=== PATIENT | female | born 1940 | race Caucasian/White ===

== ENCOUNTER 2019-09-23 14:59 | Outpatient (CLI) | payer MEDICARE, OTHER ==
[2019-09-23 17:07] LABS: Bilirubin Negative (Negative); Blood, Urine Negative (Negative); Clarity Clear (Clear); Glucose, Urine (Dipstick) Negative (Negative); Ketone, Urine Negative (Negative); Leukocyte Negative (Negative); Nitrite Negative (Negative); Protein, Urine (Dipstick) Negative (Neg-Trace); Urobilinogen 0.2 mg/dL (Less than 2)
[2019-09-23 17:17] LABS: Specific Gravity, Urine Less/Equal 1.005 (1.005-1.030)
[2019-09-23 17:27] LABS: Bacteria/HPF None Seen HPF (None Seen); RBC/HPF None Seen HPF (0-3); Squamous Epithelial 0-3 HPF (0-3); WBC/HPF None Seen HPF (0-3)
== END 2019-09-23 15:00 | disposition home or self-care (01) ==
LOC: NAV LABSP 14:59
PROVIDERS: ATTEND Family Medicine
DX: N39.0 Urinary tract infection, site not specified (principal)
CPT/HCPCS: 81001; 87086

== ENCOUNTER 2020-06-15 20:04 | Inpatient (IN) | payer MEDICARE ==
[2020-06-15] MEDS ORDERED: Dextrose 50% Abboject 50 ML SYRINGE IVP PRN (22:00)
[2020-06-15] MEDS ORDERED: Dextrose 5% in Water 1,000 ML IV PRN (22:00)
[2020-06-15] MEDS ORDERED: HumaLOG 300 UNITS/3 ML VIAL SC PRN ×2 (22:00)
[2020-06-15] MEDS ORDERED: Loratadine 10 MG TAB PO PRN (22:06)
[2020-06-15] MEDS ORDERED: Ibuprofen 400 MG TAB PO PRN (22:09)
[2020-06-15] MEDS ORDERED: Timolol 0.5% Ophth Soln 5 ml Bottle EA EYE SCH (22:15)
[2020-06-15] MEDS: Acetaminophen 500 MG TAB PO SCH (23:38)
[2020-06-16] MEDS: Acetaminophen 500 MG TAB PO SCH ×4 (05:24→23:42)
[2020-06-16 05:45] LABS: Anion Gap 14 mmol/L (10-20); BUN (Urea Nitrogen) 21 mg/dL (9.8-20.1); Calc. Creatinine Clearance 70 mL/min (70-130); Calcium 9.1 mg/dL (7.8-10.44); Carbon Dioxide 23 mmol/L (23-31); Chloride 104 mmol/L (98-107); Glucose 111 mg/dL (83-110); Potassium 4.6 mmol/L (3.5-5.1); Sodium 136 mmol/L (136-145)
[2020-06-16 05:47] LABS: #Basophils 0.1 thou/uL (0.0-0.2); #Eosinphils 0.3 thou/uL (0.0-0.7); #Lymphocytes 1.8 thou/uL (1.20-3.40); #Monocytes 0.5 thou/uL (0.11-0.59); #Neutrophils 4.7 thou/uL (1.40-6.50); %Basophils 1.1 % (0.0-1.0); %Eosinophils 4.3 % (0.0-10.0); %Monocytes 7.1 % (0.0-10.0); %Neutrophils 63.4 % (42.0-75.0); Hemoglobin 12.5 g/dL (12.0-16.0); Hypochromia SLIGHT = 6-15 cells (100X) (0-5/hpf); MDiff Complete? YES; Mean Corpuscular HGB CONC 29.6 g/dL (32.0-36.0); Mean Corpuscular Volume 94.6 fL (78.0-98.0); Mean Platelet Volume 8.2 fL (7.4-10.4); Platelet Count 163 thou/uL (130-400); Platelet Morphology Comment Appears Adequate; RBC Distribution Width 13.1 % (11.5-14.5); Red Blood Cell (RBC) Count 4.47 mill/uL (4.20-5.40); White Blood Cell (WBC) Count 7.4 thou/uL (4.8-10.8)
[2020-06-16] MEDS: diphenhydrAMINE 25 MG CAP PO PRN (06:30)
[2020-06-16] MEDS: Hydrochlorothiazide 25 MG TAB PO SCH (08:07)
[2020-06-16] MEDS: Cholecalciferol 1,000 UNITS (25 MCG) TAB PO SCH (08:08)
[2020-06-16] MEDS: ALPRAZolam 0.25 MG TAB PO SCH ×2 (08:08→21:04)
[2020-06-16] MEDS: Aspirin 81 mg Enteric Coated Tablet PO SCH ×2 (08:08→21:04)
[2020-06-16] MEDS: Glimepiride 2 MG TAB PO SCH (08:08)
[2020-06-16] MEDS: Fish Oil 1,000 MG CAP PO SCH (08:09)
[2020-06-16] MEDS: Mometasone/Formoterol 200/5 60 PUFF INH SCH ×2 (08:09→21:04)
[2020-06-16] MEDS: Timolol 0.5% Ophth Soln 5 ml Bottle EA EYE SCH ×2 (08:10→21:08)
[2020-06-16] MEDS: DIFLUPREDNATE EA EYE SCH (08:14)
[2020-06-16] MEDS: [UNRECOGNIZED DRUG - OTHER] PO SCH ×2 (08:14→21:08)
[2020-06-16] MEDS: TACROLIMUS TOP SCH (08:15)
[2020-06-17] MEDS: Acetaminophen 500 MG TAB PO SCH ×3 (05:50→17:33)
[2020-06-17] MEDS: Timolol 0.5% Ophth Soln 5 ml Bottle EA EYE SCH ×2 (08:12→20:49)
[2020-06-17] MEDS: Mometasone/Formoterol 200/5 60 PUFF INH SCH ×2 (08:13→20:45)
[2020-06-17] MEDS: Cholecalciferol 1,000 UNITS (25 MCG) TAB PO SCH (08:15)
[2020-06-17] MEDS: Aspirin 81 mg Enteric Coated Tablet PO SCH ×2 (08:16→20:46)
[2020-06-17] MEDS: Fish Oil 1,000 MG CAP PO SCH (08:16)
[2020-06-17] MEDS: ALPRAZolam 0.25 MG TAB PO SCH ×2 (08:16→20:44)
[2020-06-17] MEDS: Glimepiride 2 MG TAB PO SCH (08:17)
[2020-06-17] MEDS: [UNRECOGNIZED DRUG - OTHER] PO SCH ×2 (08:18→20:46)
[2020-06-17] MEDS: DIFLUPREDNATE EA EYE SCH (08:18)
[2020-06-17] MEDS: TACROLIMUS TOP SCH (08:19)
[2020-06-17] MEDS: Hydrochlorothiazide 25 MG TAB PO SCH (08:26)
[2020-06-17] MEDS: diphenhydrAMINE 25 MG CAP PO PRN (13:03)
[2020-06-18] MEDS: Acetaminophen 500 MG TAB PO SCH ×4 (00:14→17:08)
[2020-06-18] MEDS: Fish Oil 1,000 MG CAP PO SCH (08:58)
[2020-06-18] MEDS: Hydrochlorothiazide 25 MG TAB PO SCH (08:58)
[2020-06-18] MEDS: Aspirin 81 mg Enteric Coated Tablet PO SCH ×2 (08:58→20:41)
[2020-06-18] MEDS: Glimepiride 2 MG TAB PO SCH (08:58)
[2020-06-18] MEDS: Cholecalciferol 1,000 UNITS (25 MCG) TAB PO SCH (08:58)
[2020-06-18] MEDS: ALPRAZolam 0.25 MG TAB PO SCH ×2 (08:59→20:41)
[2020-06-18] MEDS: Mometasone/Formoterol 200/5 60 PUFF INH SCH ×2 (08:59→20:41)
[2020-06-18] MEDS: [UNRECOGNIZED DRUG - OTHER] PO SCH ×2 (09:00→20:41)
[2020-06-18] MEDS: DIFLUPREDNATE EA EYE SCH (09:00)
[2020-06-18] MEDS: Timolol 0.5% Ophth Soln 5 ml Bottle EA EYE SCH ×2 (09:01→20:40)
[2020-06-18] MEDS: TACROLIMUS TOP SCH (09:01)
[2020-06-18] MEDS: diphenhydrAMINE 25 MG CAP PO PRN (17:09)
[2020-06-19] MEDS: Acetaminophen 500 MG TAB PO SCH ×4 (01:25→17:29)
[2020-06-19] MEDS: Glimepiride 2 MG TAB PO SCH (07:53)
[2020-06-19] MEDS: ALPRAZolam 0.25 MG TAB PO SCH ×2 (07:54→20:53)
[2020-06-19] MEDS: Hydrochlorothiazide 25 MG TAB PO SCH (08:23)
[2020-06-19] MEDS: Fish Oil 1,000 MG CAP PO SCH (08:24)
[2020-06-19] MEDS: Mometasone/Formoterol 200/5 60 PUFF INH SCH ×2 (08:25→20:52)
[2020-06-19] MEDS: Timolol 0.5% Ophth Soln 5 ml Bottle EA EYE SCH ×2 (08:26→20:53)
[2020-06-19] MEDS: TACROLIMUS TOP SCH (08:27)
[2020-06-19] MEDS: DIFLUPREDNATE EA EYE SCH (08:28)
[2020-06-19] MEDS: [UNRECOGNIZED DRUG - OTHER] PO SCH ×2 (08:28→20:51)
[2020-06-19] MEDS: Cholecalciferol 1,000 UNITS (25 MCG) TAB PO SCH (08:29)
[2020-06-19] MEDS: Aspirin 81 mg Enteric Coated Tablet PO SCH ×2 (08:30→20:53)
[2020-06-19] MEDS ORDERED: ALPRAZolam 0.25 MG TAB PO PRN (13:12)
[2020-06-19] MEDS ORDERED: Lubiprostone 24 MCG CAP PO SCH (16:30)
[2020-06-20] MEDS: Acetaminophen 500 MG TAB PO SCH ×5 (00:16→23:57)
[2020-06-20 05:37] LABS: #Basophils 0.1 thou/uL (0.0-0.2); #Eosinphils 0.2 thou/uL (0.0-0.7); #Lymphocytes 2.2 thou/uL (1.20-3.40); #Monocytes 0.6 thou/uL (0.11-0.59); #Neutrophils 6.8 thou/uL (1.40-6.50); %Basophils 0.9 % (0.0-1.0); %Eosinophils 1.6 % (0.0-10.0); %Lymphocytes 22.1 % (21.0-51.0); %Monocytes 6.4 % (0.0-10.0); %Neutrophils 69.1 % (42.0-75.0); Hemoglobin 12.3 g/dL (12.0-16.0); Mean Corpuscular HGB CONC 29.5 g/dL (32.0-36.0); Mean Corpuscular Hemoglobin 27.8 pg (27.0-31.0); Mean Corpuscular Volume 94.3 fL (78.0-98.0); Mean Platelet Volume 7.6 fL (7.4-10.4); Platelet Count 282 thou/uL (130-400); Red Blood Cell (RBC) Count 4.42 mill/uL (4.20-5.40); White Blood Cell (WBC) Count 9.8 thou/uL (4.8-10.8)
[2020-06-20 05:49] LABS: Anion Gap 14 mmol/L (10-20); BUN (Urea Nitrogen) 43 mg/dL (9.8-20.1); Calc. Creatinine Clearance 56 mL/min (70-130); Calcium 8.8 mg/dL (7.8-10.44); Carbon Dioxide 23 mmol/L (23-31); Chloride 100 mmol/L (98-107); Glucose 135 mg/dL (83-110); Potassium 3.8 mmol/L (3.5-5.1); Sodium 133 mmol/L (136-145)
[2020-06-20] MEDS: Fish Oil 1,000 MG CAP PO SCH (08:05)
[2020-06-20] MEDS: Glimepiride 2 MG TAB PO SCH (08:11)
[2020-06-20] MEDS: Aspirin 81 mg Enteric Coated Tablet PO SCH ×3 (08:11→21:15)
[2020-06-20] MEDS: Cholecalciferol 1,000 UNITS (25 MCG) TAB PO SCH (08:12)
[2020-06-20] MEDS: Hydrochlorothiazide 25 MG TAB PO SCH (08:13)
[2020-06-20] MEDS: Timolol 0.5% Ophth Soln 5 ml Bottle EA EYE SCH ×3 (08:13→21:14)
[2020-06-20] MEDS: TACROLIMUS TOP SCH (08:14)
[2020-06-20] MEDS: Mometasone/Formoterol 200/5 60 PUFF INH SCH ×3 (08:15→21:14)
[2020-06-20] MEDS: DIFLUPREDNATE EA EYE SCH (08:15)
[2020-06-20] MEDS: [UNRECOGNIZED DRUG - OTHER] PO SCH ×3 (08:18→21:14)
[2020-06-20] MEDS: ALPRAZolam 0.25 MG TAB PO SCH ×2 (20:42→21:13)
[2020-06-21] MEDS: Acetaminophen 500 MG TAB PO SCH ×4 (05:24→23:27)
[2020-06-21] MEDS: DIFLUPREDNATE EA EYE SCH (07:53)
[2020-06-21] MEDS: Timolol 0.5% Ophth Soln 5 ml Bottle EA EYE SCH ×2 (07:53→20:37)
[2020-06-21] MEDS: Cholecalciferol 1,000 UNITS (25 MCG) TAB PO SCH (07:54)
[2020-06-21] MEDS: Hydrochlorothiazide 25 MG TAB PO SCH (07:55)
[2020-06-21] MEDS: Fish Oil 1,000 MG CAP PO SCH (07:55)
[2020-06-21] MEDS: Glimepiride 2 MG TAB PO SCH (07:55)
[2020-06-21] MEDS: Mometasone/Formoterol 200/5 60 PUFF INH SCH ×2 (07:55→20:37)
[2020-06-21] MEDS: Aspirin 81 mg Enteric Coated Tablet PO SCH ×2 (07:55→20:37)
[2020-06-21] MEDS: [UNRECOGNIZED DRUG - OTHER] PO SCH ×2 (07:56→20:36)
[2020-06-21] MEDS: TACROLIMUS TOP SCH (07:59)
[2020-06-21] MEDS: ALPRAZolam 0.25 MG TAB PO SCH (20:37)
[2020-06-22] MEDS: Acetaminophen 500 MG TAB PO SCH ×3 (04:59→18:16)
[2020-06-22] MEDS: Glimepiride 2 MG TAB PO SCH (08:24)
[2020-06-22] MEDS: Cholecalciferol 1,000 UNITS (25 MCG) TAB PO SCH (08:24)
[2020-06-22] MEDS: Fish Oil 1,000 MG CAP PO SCH (08:25)
[2020-06-22] MEDS: Hydrochlorothiazide 25 MG TAB PO SCH (08:25)
[2020-06-22] MEDS: Aspirin 81 mg Enteric Coated Tablet PO SCH ×2 (08:26→20:35)
[2020-06-22] MEDS: [UNRECOGNIZED DRUG - OTHER] PO SCH ×2 (08:26→20:36)
[2020-06-22] MEDS: Mometasone/Formoterol 200/5 60 PUFF INH SCH ×2 (08:26→20:33)
[2020-06-22] MEDS: DIFLUPREDNATE EA EYE SCH (08:26)
[2020-06-22] MEDS: Timolol 0.5% Ophth Soln 5 ml Bottle EA EYE SCH ×2 (08:27→20:35)
[2020-06-22] MEDS: TACROLIMUS TOP SCH (08:27)
[2020-06-22] MEDS: ALPRAZolam 0.25 MG TAB PO SCH (20:35)
[2020-06-23] MEDS: Acetaminophen 500 MG TAB PO SCH ×4 (01:16→18:48)
[2020-06-23] MEDS: Mometasone/Formoterol 200/5 60 PUFF INH SCH ×2 (09:05→20:56)
[2020-06-23] MEDS: [UNRECOGNIZED DRUG - OTHER] PO SCH ×2 (09:05→20:54)
[2020-06-23] MEDS: DIFLUPREDNATE EA EYE SCH (09:07)
[2020-06-23] MEDS: Cholecalciferol 1,000 UNITS (25 MCG) TAB PO SCH (09:08)
[2020-06-23] MEDS: Timolol 0.5% Ophth Soln 5 ml Bottle EA EYE SCH ×2 (09:08→20:55)
[2020-06-23] MEDS: Glimepiride 2 MG TAB PO SCH (09:09)
[2020-06-23] MEDS: Aspirin 81 mg Enteric Coated Tablet PO SCH ×2 (09:09→20:54)
[2020-06-23] MEDS: Fish Oil 1,000 MG CAP PO SCH (09:09)
[2020-06-23] MEDS: Hydrochlorothiazide 25 MG TAB PO SCH (09:09)
[2020-06-23] MEDS: TACROLIMUS TOP SCH (09:11)
[2020-06-23] MEDS: ALPRAZolam 0.25 MG TAB PO SCH (20:54)
[2020-06-24] MEDS: Acetaminophen 500 MG TAB PO SCH ×4 (02:36→17:55)
[2020-06-24] MEDS: Aspirin 81 mg Enteric Coated Tablet PO SCH ×2 (08:00→21:17)
[2020-06-24] MEDS: Cholecalciferol 1,000 UNITS (25 MCG) TAB PO SCH (08:00)
[2020-06-24] MEDS: Glimepiride 2 MG TAB PO SCH (08:00)
[2020-06-24] MEDS: Hydrochlorothiazide 25 MG TAB PO SCH (08:01)
[2020-06-24] MEDS: Fish Oil 1,000 MG CAP PO SCH (08:01)
[2020-06-24] MEDS: Mometasone/Formoterol 200/5 60 PUFF INH SCH ×2 (08:01→21:18)
[2020-06-24] MEDS: [UNRECOGNIZED DRUG - OTHER] PO SCH ×2 (08:03→21:17)
[2020-06-24] MEDS: DIFLUPREDNATE EA EYE SCH ×2 (08:04→08:16)
[2020-06-24] MEDS: TACROLIMUS TOP SCH (08:04)
[2020-06-24] MEDS: Timolol 0.5% Ophth Soln 5 ml Bottle EA EYE SCH ×2 (08:04→21:17)
[2020-06-24] MEDS: ALPRAZolam 0.25 MG TAB PO SCH (21:17)
[2020-06-25] MEDS: Acetaminophen 500 MG TAB PO SCH ×5 (00:19→23:19)
[2020-06-25] MEDS: Aspirin 81 mg Enteric Coated Tablet PO SCH ×2 (08:01→20:49)
[2020-06-25] MEDS: Glimepiride 2 MG TAB PO SCH (08:01)
[2020-06-25] MEDS: Fish Oil 1,000 MG CAP PO SCH (08:01)
[2020-06-25] MEDS: Cholecalciferol 1,000 UNITS (25 MCG) TAB PO SCH (08:01)
[2020-06-25] MEDS: Hydrochlorothiazide 25 MG TAB PO SCH (08:02)
[2020-06-25] MEDS: Mometasone/Formoterol 200/5 60 PUFF INH SCH ×2 (08:02→20:49)
[2020-06-25] MEDS: [UNRECOGNIZED DRUG - OTHER] PO SCH ×2 (08:03→20:47)
[2020-06-25] MEDS: DIFLUPREDNATE EA EYE SCH (08:03)
[2020-06-25] MEDS: Timolol 0.5% Ophth Soln 5 ml Bottle EA EYE SCH ×2 (08:04→20:47)
[2020-06-25] MEDS: TACROLIMUS TOP SCH (08:04)
[2020-06-25] MEDS: Lubiprostone 24 MCG CAP PO PRN (10:33)
[2020-06-25] MEDS: ALPRAZolam 0.25 MG TAB PO SCH (20:49)
[2020-06-26] MEDS: Acetaminophen 500 MG TAB PO SCH ×4 (05:56→23:39)
[2020-06-26] MEDS: Cholecalciferol 1,000 UNITS (25 MCG) TAB PO SCH (08:12)
[2020-06-26] MEDS: Hydrochlorothiazide 25 MG TAB PO SCH (08:12)
[2020-06-26] MEDS: Glimepiride 2 MG TAB PO SCH (08:12)
[2020-06-26] MEDS: Fish Oil 1,000 MG CAP PO SCH (08:12)
[2020-06-26] MEDS: Aspirin 81 mg Enteric Coated Tablet PO SCH ×2 (08:13→20:48)
[2020-06-26] MEDS: Mometasone/Formoterol 200/5 60 PUFF INH SCH ×2 (08:13→20:48)
[2020-06-26] MEDS: [UNRECOGNIZED DRUG - OTHER] PO SCH ×2 (08:14→20:48)
[2020-06-26] MEDS: Timolol 0.5% Ophth Soln 5 ml Bottle EA EYE SCH ×2 (08:14→20:49)
[2020-06-26] MEDS: DIFLUPREDNATE EA EYE SCH (08:15)
[2020-06-26] MEDS: TACROLIMUS TOP SCH (08:15)
[2020-06-26] MEDS: ALPRAZolam 0.25 MG TAB PO SCH (20:48)
[2020-06-27] MEDS: Acetaminophen 500 MG TAB PO SCH ×2 (06:05→12:01)
[2020-06-27] MEDS: Timolol 0.5% Ophth Soln 5 ml Bottle EA EYE SCH ×2 (08:08→20:41)
[2020-06-27] MEDS: Aspirin 81 mg Enteric Coated Tablet PO SCH ×2 (08:09→20:40)
[2020-06-27] MEDS: Glimepiride 2 MG TAB PO SCH (08:10)
[2020-06-27] MEDS: Hydrochlorothiazide 25 MG TAB PO SCH (08:10)
[2020-06-27] MEDS: Fish Oil 1,000 MG CAP PO SCH (08:10)
[2020-06-27] MEDS: Cholecalciferol 1,000 UNITS (25 MCG) TAB PO SCH (08:10)
[2020-06-27] MEDS: DIFLUPREDNATE EA EYE SCH (08:11)
[2020-06-27] MEDS: Mometasone/Formoterol 200/5 60 PUFF INH SCH ×2 (08:11→20:40)
[2020-06-27] MEDS: [UNRECOGNIZED DRUG - OTHER] PO SCH ×2 (08:11→20:40)
[2020-06-27] MEDS: TACROLIMUS TOP SCH (08:12)
[2020-06-27 09:56] VITALS: BMI 39.0
[2020-06-27] MEDS: Lubiprostone 24 MCG CAP PO PRN (12:07)
[2020-06-27] MEDS ORDERED: Ondansetron ODT 4 MG TAB ONE (13:49)
[2020-06-27] MEDS ORDERED: Ondansetron ODT 4 MG TAB PO PRN (15:55)
[2020-06-27] MEDS: ALPRAZolam 0.25 MG TAB PO SCH (20:40)
[2020-06-27] MEDS: Ibuprofen 200 MG TAB PO PRN (21:45)
[2020-06-28] MEDS: Acetaminophen 500 MG TAB PO SCH ×5 (00:18→17:31)
[2020-06-28] MEDS: Cholecalciferol 1,000 UNITS (25 MCG) TAB PO SCH (08:23)
[2020-06-28] MEDS: Aspirin 81 mg Enteric Coated Tablet PO SCH ×2 (08:23→20:57)
[2020-06-28] MEDS: Fish Oil 1,000 MG CAP PO SCH (08:23)
[2020-06-28] MEDS: Glimepiride 2 MG TAB PO SCH (08:23)
[2020-06-28] MEDS: Timolol 0.5% Ophth Soln 5 ml Bottle EA EYE SCH ×2 (08:25→20:57)
[2020-06-28] MEDS: DIFLUPREDNATE EA EYE SCH (08:25)
[2020-06-28] MEDS: TACROLIMUS TOP SCH (08:26)
[2020-06-28] MEDS: Hydrochlorothiazide 25 MG TAB PO SCH (08:26)
[2020-06-28] MEDS: Mometasone/Formoterol 200/5 60 PUFF INH SCH ×2 (08:29→20:58)
[2020-06-28] MEDS: [UNRECOGNIZED DRUG - OTHER] PO SCH ×2 (08:29→20:58)
[2020-06-28] MEDS: Lubiprostone 24 MCG CAP PO PRN (09:02)
[2020-06-28] MEDS: Polyethylene Glycol 3350 17 GM Packet PO PRN (12:37)
[2020-06-28] MEDS: ALPRAZolam 0.25 MG TAB PO SCH (20:57)
[2020-06-29] MEDS: Acetaminophen 500 MG TAB PO SCH ×5 (00:19→23:59)
[2020-06-29] MEDS: Polyethylene Glycol 3350 17 GM Packet PO PRN (07:49)
[2020-06-29] MEDS: Lubiprostone 24 MCG CAP PO PRN (07:49)
[2020-06-29] MEDS: [UNRECOGNIZED DRUG - OTHER] PO SCH ×2 (07:49→21:11)
[2020-06-29] MEDS: Glimepiride 2 MG TAB PO SCH (07:50)
[2020-06-29] MEDS: Cholecalciferol 1,000 UNITS (25 MCG) TAB PO SCH (07:50)
[2020-06-29] MEDS: Fish Oil 1,000 MG CAP PO SCH (07:50)
[2020-06-29] MEDS: Mometasone/Formoterol 200/5 60 PUFF INH SCH ×2 (07:51→21:04)
[2020-06-29] MEDS: TACROLIMUS TOP SCH (07:52)
[2020-06-29] MEDS: Timolol 0.5% Ophth Soln 5 ml Bottle EA EYE SCH ×2 (07:52→21:03)
[2020-06-29] MEDS: DIFLUPREDNATE EA EYE SCH (07:52)
[2020-06-29] MEDS: Aspirin 81 mg Enteric Coated Tablet PO SCH ×2 (07:57→21:03)
[2020-06-29] MEDS ORDERED: Bisacodyl 10 MG SUPP PR PRN (16:03)
[2020-06-29] MEDS: Ibuprofen 200 MG TAB PO PRN (16:29)
[2020-06-29] MEDS: ALPRAZolam 0.25 MG TAB PO SCH (21:03)
[2020-06-30] MEDS: Acetaminophen 500 MG TAB PO SCH ×3 (05:07→18:23)
[2020-06-30] MEDS: Timolol 0.5% Ophth Soln 5 ml Bottle EA EYE SCH ×2 (08:11→20:50)
[2020-06-30] MEDS: Aspirin 81 mg Enteric Coated Tablet PO SCH ×2 (08:12→20:50)
[2020-06-30] MEDS: Glimepiride 2 MG TAB PO SCH (08:13)
[2020-06-30] MEDS: Lubiprostone 24 MCG CAP PO PRN (08:13)
[2020-06-30] MEDS: Fish Oil 1,000 MG CAP PO SCH (08:13)
[2020-06-30] MEDS: Cholecalciferol 1,000 UNITS (25 MCG) TAB PO SCH (08:13)
[2020-06-30] MEDS: DIFLUPREDNATE EA EYE SCH (08:14)
[2020-06-30] MEDS: [UNRECOGNIZED DRUG - OTHER] PO SCH ×2 (08:15→20:50)
[2020-06-30] MEDS: Mometasone/Formoterol 200/5 60 PUFF INH SCH ×2 (08:15→20:51)
[2020-06-30] MEDS: TACROLIMUS TOP SCH (08:15)
[2020-06-30] MEDS: ALPRAZolam 0.25 MG TAB PO SCH (20:52)
[2020-07-01] MEDS: Acetaminophen 500 MG TAB PO SCH ×2 (00:05→05:12)
[2020-07-01 07:43] VITALS: BP 137/80; TEMP 97.4
[2020-07-01] MEDS: Mometasone/Formoterol 200/5 60 PUFF INH SCH (09:13)
[2020-07-01] MEDS: Aspirin 81 mg Enteric Coated Tablet PO SCH (09:14)
[2020-07-01] MEDS: Glimepiride 2 MG TAB PO SCH (09:14)
[2020-07-01] MEDS: Timolol 0.5% Ophth Soln 5 ml Bottle EA EYE SCH (09:14)
[2020-07-01] MEDS: Cholecalciferol 1,000 UNITS (25 MCG) TAB PO SCH (09:14)
[2020-07-01] MEDS: Fish Oil 1,000 MG CAP PO SCH (09:14)
[2020-07-01] MEDS: [UNRECOGNIZED DRUG - OTHER] PO SCH (09:15)
[2020-07-01] MEDS: TACROLIMUS TOP SCH (09:15)
[2020-07-01] MEDS: DIFLUPREDNATE EA EYE SCH (09:17)
[2020-07-01] MEDS: Lubiprostone 24 MCG CAP PO PRN (09:26)
== END 2020-07-01 10:45 | disposition home health service (06) | DRG 948 ==
LOC: NAV ACUTE 20:04
PROVIDERS: ADMIT Internal Medicine; ATTEND Internal Medicine
DX: R53.81 Other malaise (principal); N39.0 Urinary tract infection, site not specified; K59.00 Constipation, unspecified; E11.9 Type 2 diabetes mellitus without complications; I10 Essential (primary) hypertension; F32.9 Major depressive disorder, single episode, unspecified; G47.33 Obstructive sleep apnea (adult) (pediatric); J45.909 Unspecified asthma, uncomplicated; J30.9 Allergic rhinitis, unspecified; H40.9 Unspecified glaucoma; Z90.49 Acquired absence of other specified parts of digestive tract; H54.8 Legal blindness, as defined in USA; F41.9 Anxiety disorder, unspecified; E66.01 Morbid (severe) obesity due to excess calories; Z68.39 Body mass index [BMI] 39.0-39.9, adult; G31.84 Mild cognitive impairment of uncertain or unknown etiology
CPT/HCPCS: 36416; 80048; 85025; 94664; J1815; Q0163

== ENCOUNTER 2020-08-28 16:31 | Inpatient (IN) | payer MEDICARE, OTHER ==
[2020-08-28] MEDS ORDERED: Dextrose 50% Abboject 50 ML SYRINGE IVP PRN (18:45)
[2020-08-28] MEDS ORDERED: Albuterol 200 PUFF (6.7GM INHALER) INH PRN (18:45)
[2020-08-28] MEDS ORDERED: Dextrose 5% in Water 1,000 ML IV PRN (18:45)
[2020-08-28] MEDS ORDERED: Lubiprostone 24 MCG CAP PO PRN (18:48)
[2020-08-28] MEDS: Aspirin 81 mg Enteric Coated Tablet PO SCH (21:00)
[2020-08-28] MEDS ORDERED: Glimepiride 2 MG TAB PO SCH (21:00)
[2020-08-28] MEDS: Timolol 0.5% Ophth Soln 5 ml Bottle EA EYE SCH (21:01)
[2020-08-28] MEDS: Senokot S 8.6-50 MG TAB PO SCH (21:01)
[2020-08-28] MEDS: ALPRAZolam 0.5 MG TAB PO SCH (21:02)
[2020-08-29] MEDS: Acetaminophen 500 MG TAB PO SCH ×4 (00:02→18:00)
[2020-08-29 05:19] LABS: #Basophils 0.1 thou/uL (0.0-0.2); #Eosinphils 0.4 thou/uL (0.0-0.7); #Lymphocytes 2.3 thou/uL (1.20-3.40); #Neutrophils 8.6 thou/uL (1.40-6.50); %Eosinophils 3.2 % (0.0-10.0); %Lymphocytes 18.3 % (21.0-51.0); %Monocytes 8.1 % (0.0-10.0); %Neutrophils 69.3 % (42.0-75.0); Hemoglobin 11.7 g/dL (12.0-16.0); Mean Corpuscular Hemoglobin 29.1 pg (27.0-31.0); Mean Corpuscular Volume 93.7 fL (78.0-98.0); Mean Platelet Volume 7.1 fL (7.4-10.4); Platelet Count 277 thou/uL (130-400); RBC Distribution Width 12.7 % (11.5-14.5); Red Blood Cell (RBC) Count 4.03 mill/uL (4.20-5.40); White Blood Cell (WBC) Count 12.4 thou/uL (4.8-10.8)
[2020-08-29 05:29] LABS: Anion Gap 12 mmol/L (10-20); BUN (Urea Nitrogen) 20 mg/dL (9.8-20.1); Calc. Creatinine Clearance 65 mL/min (70-130); Carbon Dioxide 25 mmol/L (23-31); Chloride 104 mmol/L (98-107); Glucose 130 mg/dL (83-110); Potassium 4.1 mmol/L (3.5-5.1); Sodium 137 mmol/L (136-145)
[2020-08-29] MEDS: ALPRAZolam 0.5 MG TAB PO SCH ×2 (08:48→21:10)
[2020-08-29] MEDS: Senokot S 8.6-50 MG TAB PO SCH ×2 (08:48→21:10)
[2020-08-29] MEDS: Saccharomyces boulardii 250 MG CAP PO SCH (08:49)
[2020-08-29] MEDS: Multivitamin W/ Minerals 1 TAB PO SCH (08:49)
[2020-08-29] MEDS: Fish Oil 1,000 MG CAP PO SCH (08:49)
[2020-08-29] MEDS: Aspirin 81 mg Enteric Coated Tablet PO SCH ×2 (08:49→21:10)
[2020-08-29] MEDS: Cholecalciferol 1,000 UNITS (25 MCG) TAB PO SCH (08:49)
[2020-08-29] MEDS: Timolol 0.5% Ophth Soln 5 ml Bottle EA EYE SCH ×2 (08:49→21:13)
[2020-08-29] MEDS: TACROLIMUS 0.1% TOP SCH ×2 (08:50→10:12)
[2020-08-29] MEDS: DIFLUPREDNATE EA EYE SCH (08:52)
[2020-08-29] MEDS: Glimepiride 2 MG TAB PO SCH (17:59)
[2020-08-29] MEDS: METRONIDAZOLE 1% TOP SCH (18:01)
[2020-08-30] MEDS: Acetaminophen 500 MG TAB PO SCH ×4 (03:43→17:47)
[2020-08-30 05:26] LABS: #Basophils 0.1 thou/uL (0.0-0.2); #Eosinphils 0.4 thou/uL (0.0-0.7); #Lymphocytes 2.8 thou/uL (1.20-3.40); #Monocytes 0.8 thou/uL (0.11-0.59); #Neutrophils 7.6 thou/uL (1.40-6.50); %Basophils 0.9 % (0.0-1.0); %Eosinophils 3.5 % (0.0-10.0); %Lymphocytes 23.6 % (21.0-51.0); %Monocytes 7.2 % (0.0-10.0); %Neutrophils 64.8 % (42.0-75.0); Hemoglobin 12.1 g/dL (12.0-16.0); Mean Corpuscular HGB CONC 31.4 g/dL (32.0-36.0); Mean Corpuscular Hemoglobin 29.4 pg (27.0-31.0); Mean Corpuscular Volume 93.6 fL (78.0-98.0); Mean Platelet Volume 6.8 fL (7.4-10.4); Platelet Count 289 thou/uL (130-400); RBC Distribution Width 12.7 % (11.5-14.5); White Blood Cell (WBC) Count 11.7 thou/uL (4.8-10.8)
[2020-08-30] MEDS ORDERED: Glimepiride 2 MG TAB PO SCH (08:00)
[2020-08-30] MEDS: Multivitamin W/ Minerals 1 TAB PO SCH (08:20)
[2020-08-30] MEDS: Fish Oil 1,000 MG CAP PO SCH (08:20)
[2020-08-30] MEDS: Saccharomyces boulardii 250 MG CAP PO SCH (08:20)
[2020-08-30] MEDS: Aspirin 81 mg Enteric Coated Tablet PO SCH ×2 (08:20→21:22)
[2020-08-30] MEDS: Senokot S 8.6-50 MG TAB PO SCH ×2 (08:21→21:22)
[2020-08-30] MEDS: ALPRAZolam 0.5 MG TAB PO SCH (08:21)
[2020-08-30] MEDS: Cholecalciferol 1,000 UNITS (25 MCG) TAB PO SCH (08:22)
[2020-08-30] MEDS: Timolol 0.5% Ophth Soln 5 ml Bottle EA EYE SCH ×2 (08:22→21:22)
[2020-08-30] MEDS: DIFLUPREDNATE EA EYE SCH (11:16)
[2020-08-30] MEDS: Glimepiride 2 MG TAB PO SCH (17:46)
[2020-08-30] MEDS: CLOBETASOL PROPIONATE TOP SCH (21:23)
[2020-08-30] MEDS: METRONIDAZOLE 1% TOP SCH ×2 (21:26→21:40)
[2020-08-31] MEDS: Acetaminophen 500 MG TAB PO SCH ×5 (00:32→23:49)
[2020-08-31] MEDS: Multivitamin W/ Minerals 1 TAB PO SCH (08:46)
[2020-08-31] MEDS: Aspirin 81 mg Enteric Coated Tablet PO SCH ×2 (08:46→21:10)
[2020-08-31] MEDS: Fish Oil 1,000 MG CAP PO SCH (08:46)
[2020-08-31] MEDS: Senokot S 8.6-50 MG TAB PO SCH ×2 (08:46→21:09)
[2020-08-31] MEDS: Cholecalciferol 1,000 UNITS (25 MCG) TAB PO SCH (08:46)
[2020-08-31] MEDS: DIFLUPREDNATE EA EYE SCH (08:47)
[2020-08-31] MEDS: Timolol 0.5% Ophth Soln 5 ml Bottle EA EYE SCH ×2 (08:47→21:09)
[2020-08-31] MEDS: Saccharomyces boulardii 250 MG CAP PO SCH (08:47)
[2020-08-31] MEDS: Glimepiride 2 MG TAB PO SCH (17:23)
[2020-08-31] MEDS: METRONIDAZOLE 1% TOP SCH (21:21)
[2020-08-31] MEDS: Nystatin Powder 15 GM BOT TOP SCH (21:22)
[2020-09-01] MEDS: Acetaminophen 500 MG TAB PO SCH (05:46)
[2020-09-01] MEDS: Saccharomyces boulardii 250 MG CAP PO SCH (08:26)
[2020-09-01] MEDS: Fish Oil 1,000 MG CAP PO SCH (08:26)
[2020-09-01] MEDS: Cholecalciferol 1,000 UNITS (25 MCG) TAB PO SCH (08:26)
[2020-09-01] MEDS: Multivitamin W/ Minerals 1 TAB PO SCH (08:26)
[2020-09-01] MEDS: Senokot S 8.6-50 MG TAB PO SCH ×2 (08:26→21:04)
[2020-09-01] MEDS: Aspirin 81 mg Enteric Coated Tablet PO SCH ×2 (08:26→21:04)
[2020-09-01] MEDS: Nystatin Powder 15 GM BOT TOP SCH ×2 (08:27→21:04)
[2020-09-01] MEDS: DIFLUPREDNATE EA EYE SCH (08:27)
[2020-09-01] MEDS: Timolol 0.5% Ophth Soln 5 ml Bottle EA EYE SCH ×2 (08:27→21:03)
[2020-09-01] MEDS: Triamcinolone 0.1% Cream 15 GM TUBE TOP SCH ×2 (08:39→21:04)
[2020-09-01] MEDS: cloNIDine 0.1 MG TAB PO PRN ×2 (10:26→13:38)
[2020-09-01] MEDS: ALPRAZolam 0.5 MG TAB PO PRN (13:38)
[2020-09-01] MEDS: Glimepiride 2 MG TAB PO SCH (17:30)
[2020-09-01] MEDS: Acetaminophen 500 MG TAB PO PRN (18:10)
[2020-09-01] MEDS: CLOBETASOL PROPIONATE TOP SCH (23:15)
[2020-09-01] MEDS: METRONIDAZOLE 1% TOP SCH (23:16)
[2020-09-02 06:00] LABS: #Basophils 0.1 thou/uL (0.0-0.2); #Eosinphils 0.3 thou/uL (0.0-0.7); #Lymphocytes 2.4 thou/uL (1.20-3.40); #Monocytes 0.6 thou/uL (0.11-0.59); #Neutrophils 5.3 thou/uL (1.40-6.50); %Eosinophils 3.1 % (0.0-10.0); %Lymphocytes 27.4 % (21.0-51.0); %Monocytes 6.5 % (0.0-10.0); %Neutrophils 62.1 % (42.0-75.0); Hemoglobin 12.8 g/dL (12.0-16.0); Mean Corpuscular HGB CONC 31.3 g/dL (32.0-36.0); Mean Corpuscular Volume 92.5 fL (78.0-98.0); Mean Platelet Volume 7.3 fL (7.4-10.4); Platelet Count 310 thou/uL (130-400); RBC Distribution Width 12.6 % (11.5-14.5); White Blood Cell (WBC) Count 8.6 thou/uL (4.8-10.8)
[2020-09-02 06:18] LABS: Anion Gap 13 mmol/L (10-20); BUN (Urea Nitrogen) 24 mg/dL (9.8-20.1); Calc. Creatinine Clearance 68 mL/min (70-130); Calcium 9.4 mg/dL (7.8-10.44); Carbon Dioxide 25 mmol/L (23-31); Chloride 103 mmol/L (98-107); Glucose 118 mg/dL (83-110); Sodium 137 mmol/L (136-145)
[2020-09-02] MEDS: Saccharomyces boulardii 250 MG CAP PO SCH (09:23)
[2020-09-02] MEDS: Cholecalciferol 1,000 UNITS (25 MCG) TAB PO SCH (09:24)
[2020-09-02] MEDS: Aspirin 81 mg Enteric Coated Tablet PO SCH ×2 (09:24→20:13)
[2020-09-02] MEDS: Senokot S 8.6-50 MG TAB PO SCH ×2 (09:24→20:13)
[2020-09-02] MEDS: Timolol 0.5% Ophth Soln 5 ml Bottle EA EYE SCH ×2 (09:24→20:14)
[2020-09-02] MEDS: Fish Oil 1,000 MG CAP PO SCH (09:24)
[2020-09-02] MEDS: Multivitamin W/ Minerals 1 TAB PO SCH (09:24)
[2020-09-02] MEDS: Triamcinolone 0.1% Cream 15 GM TUBE TOP SCH ×2 (09:25→20:17)
[2020-09-02] MEDS: DIFLUPREDNATE EA EYE SCH (09:26)
[2020-09-02] MEDS: Nystatin Powder 15 GM BOT TOP SCH ×2 (09:27→20:15)
[2020-09-02] MEDS: Glimepiride 2 MG TAB PO SCH (17:26)
[2020-09-02] MEDS: METRONIDAZOLE 1% TOP SCH (20:14)
[2020-09-03] MEDS: Cholecalciferol 1,000 UNITS (25 MCG) TAB PO SCH (08:33)
[2020-09-03] MEDS: cloNIDine 0.1 MG TAB PO PRN (08:33)
[2020-09-03] MEDS: Aspirin 81 mg Enteric Coated Tablet PO SCH ×2 (08:34→20:31)
[2020-09-03] MEDS: Timolol 0.5% Ophth Soln 5 ml Bottle EA EYE SCH ×2 (08:34→20:33)
[2020-09-03] MEDS: DIFLUPREDNATE EA EYE SCH (08:34)
[2020-09-03] MEDS: Multivitamin W/ Minerals 1 TAB PO SCH (08:34)
[2020-09-03] MEDS: Fish Oil 1,000 MG CAP PO SCH (08:34)
[2020-09-03] MEDS: Triamcinolone 0.1% Cream 15 GM TUBE TOP SCH ×2 (08:34→20:33)
[2020-09-03] MEDS: Saccharomyces boulardii 250 MG CAP PO SCH (08:34)
[2020-09-03] MEDS: Senokot S 8.6-50 MG TAB PO SCH ×2 (08:35→20:33)
[2020-09-03] MEDS: Nystatin Powder 15 GM BOT TOP SCH ×2 (08:46→20:32)
[2020-09-03] MEDS: Glimepiride 2 MG TAB PO SCH (17:24)
[2020-09-03] MEDS: Acetaminophen 500 MG TAB PO PRN (20:31)
[2020-09-03] MEDS: Loratadine 10 MG TAB PO SCH (20:31)
[2020-09-03] MEDS: ALPRAZolam 0.5 MG TAB PO PRN (20:31)
[2020-09-03] MEDS: METRONIDAZOLE 1% TOP SCH (20:32)
[2020-09-04] MEDS: Cholecalciferol 1,000 UNITS (25 MCG) TAB PO SCH (08:42)
[2020-09-04] MEDS: Saccharomyces boulardii 250 MG CAP PO SCH (08:42)
[2020-09-04] MEDS: Senokot S 8.6-50 MG TAB PO SCH ×2 (08:42→20:53)
[2020-09-04] MEDS: Multivitamin W/ Minerals 1 TAB PO SCH (08:43)
[2020-09-04] MEDS: Aspirin 81 mg Enteric Coated Tablet PO SCH ×2 (08:43→20:54)
[2020-09-04] MEDS: Fish Oil 1,000 MG CAP PO SCH (08:43)
[2020-09-04] MEDS: Nystatin Powder 15 GM BOT TOP SCH ×2 (08:48→20:55)
[2020-09-04] MEDS: DIFLUPREDNATE EA EYE SCH (08:49)
[2020-09-04] MEDS: Triamcinolone 0.1% Cream 15 GM TUBE TOP SCH ×2 (08:51→20:54)
[2020-09-04] MEDS: Timolol 0.5% Ophth Soln 5 ml Bottle EA EYE SCH ×2 (08:52→20:55)
[2020-09-04] MEDS: Glimepiride 2 MG TAB PO SCH (17:00)
[2020-09-04] MEDS: HumaLOG 300 UNITS/3 ML VIAL SC PRN ×2 (17:29→20:59)
[2020-09-04] MEDS: METRONIDAZOLE 1% TOP SCH (20:54)
[2020-09-04] MEDS: Loratadine 10 MG TAB PO SCH (20:54)
[2020-09-04] MEDS: CLOBETASOL PROPIONATE TOP SCH (20:55)
[2020-09-05] MEDS: Aspirin 81 mg Enteric Coated Tablet PO SCH ×2 (10:34→21:29)
[2020-09-05] MEDS: Cholecalciferol 1,000 UNITS (25 MCG) TAB PO SCH (10:34)
[2020-09-05] MEDS: Fish Oil 1,000 MG CAP PO SCH (10:35)
[2020-09-05] MEDS: Multivitamin W/ Minerals 1 TAB PO SCH (10:35)
[2020-09-05] MEDS: Saccharomyces boulardii 250 MG CAP PO SCH (10:36)
[2020-09-05] MEDS: Senokot S 8.6-50 MG TAB PO SCH ×2 (10:39→21:28)
[2020-09-05] MEDS: DIFLUPREDNATE EA EYE SCH (10:42)
[2020-09-05] MEDS: Timolol 0.5% Ophth Soln 5 ml Bottle EA EYE SCH ×2 (10:44→21:31)
[2020-09-05] MEDS: Triamcinolone 0.1% Cream 15 GM TUBE TOP SCH ×2 (10:45→21:30)
[2020-09-05] MEDS: Nystatin Powder 15 GM BOT TOP SCH ×2 (10:47→21:30)
[2020-09-05] MEDS: Glimepiride 2 MG TAB PO SCH (17:52)
[2020-09-05] MEDS: Loratadine 10 MG TAB PO SCH (21:29)
[2020-09-05] MEDS: METRONIDAZOLE 1% TOP SCH (21:30)
[2020-09-06] MEDS: Fish Oil 1,000 MG CAP PO SCH (10:09)
[2020-09-06] MEDS: Saccharomyces boulardii 250 MG CAP PO SCH (10:09)
[2020-09-06] MEDS: Cholecalciferol 1,000 UNITS (25 MCG) TAB PO SCH (10:09)
[2020-09-06] MEDS: Multivitamin W/ Minerals 1 TAB PO SCH (10:09)
[2020-09-06] MEDS: DIFLUPREDNATE EA EYE SCH (10:10)
[2020-09-06] MEDS: Timolol 0.5% Ophth Soln 5 ml Bottle EA EYE SCH ×2 (10:10→20:59)
[2020-09-06] MEDS: Senokot S 8.6-50 MG TAB PO SCH ×2 (10:10→21:00)
[2020-09-06] MEDS: Triamcinolone 0.1% Cream 15 GM TUBE TOP SCH ×2 (10:11→20:59)
[2020-09-06] MEDS: Aspirin 81 mg Enteric Coated Tablet PO SCH ×2 (10:12→21:00)
[2020-09-06] MEDS: Glimepiride 2 MG TAB PO SCH (17:34)
[2020-09-06] MEDS: Loratadine 10 MG TAB PO SCH (21:00)
[2020-09-06] MEDS: CLOBETASOL PROPIONATE TOP SCH (21:04)
[2020-09-06] MEDS: METRONIDAZOLE 1% TOP SCH (21:05)
[2020-09-07] MEDS: Fish Oil 1,000 MG CAP PO SCH (08:35)
[2020-09-07] MEDS: Saccharomyces boulardii 250 MG CAP PO SCH (08:35)
[2020-09-07] MEDS: Aspirin 81 mg Enteric Coated Tablet PO SCH ×2 (08:35→21:04)
[2020-09-07] MEDS: Cholecalciferol 1,000 UNITS (25 MCG) TAB PO SCH (08:35)
[2020-09-07] MEDS: Multivitamin W/ Minerals 1 TAB PO SCH (08:36)
[2020-09-07] MEDS: Senokot S 8.6-50 MG TAB PO SCH ×2 (08:36→21:03)
[2020-09-07] MEDS: DIFLUPREDNATE EA EYE SCH (08:37)
[2020-09-07] MEDS: Timolol 0.5% Ophth Soln 5 ml Bottle EA EYE SCH ×2 (08:38→21:01)
[2020-09-07] MEDS: Triamcinolone 0.1% Cream 15 GM TUBE TOP SCH ×2 (08:40→21:04)
[2020-09-07] MEDS: cloNIDine 0.1 MG TAB PO PRN (12:38)
[2020-09-07] MEDS: Glimepiride 2 MG TAB PO SCH (16:59)
[2020-09-07] MEDS: METRONIDAZOLE 1% TOP SCH (21:02)
[2020-09-07] MEDS: Losartan 25 MG TAB PO SCH (21:03)
[2020-09-07] MEDS: Loratadine 10 MG TAB PO SCH (21:04)
[2020-09-08] MEDS: Saccharomyces boulardii 250 MG CAP PO SCH (09:53)
[2020-09-08] MEDS: Aspirin 81 mg Enteric Coated Tablet PO SCH ×2 (09:53→20:46)
[2020-09-08] MEDS: Senokot S 8.6-50 MG TAB PO SCH ×2 (09:53→20:45)
[2020-09-08] MEDS: Fish Oil 1,000 MG CAP PO SCH (09:53)
[2020-09-08] MEDS: Cholecalciferol 1,000 UNITS (25 MCG) TAB PO SCH (09:53)
[2020-09-08] MEDS: Multivitamin W/ Minerals 1 TAB PO SCH (09:53)
[2020-09-08] MEDS: DIFLUPREDNATE EA EYE SCH (09:54)
[2020-09-08] MEDS: Timolol 0.5% Ophth Soln 5 ml Bottle EA EYE SCH ×2 (09:56→20:46)
[2020-09-08] MEDS: Triamcinolone 0.1% Cream 15 GM TUBE TOP SCH ×2 (09:57→20:47)
[2020-09-08] MEDS: Acetaminophen 500 MG TAB PO PRN (10:14)
[2020-09-08] MEDS: Glimepiride 2 MG TAB PO SCH (17:50)
[2020-09-08] MEDS: Losartan 25 MG TAB PO SCH (20:45)
[2020-09-08] MEDS: Loratadine 10 MG TAB PO SCH (20:45)
[2020-09-08] MEDS: METRONIDAZOLE 1% TOP SCH (20:46)
[2020-09-08] MEDS: CLOBETASOL PROPIONATE TOP SCH (20:46)
[2020-09-09] MEDS: Senokot S 8.6-50 MG TAB PO SCH ×2 (09:44→20:34)
[2020-09-09] MEDS: Cholecalciferol 1,000 UNITS (25 MCG) TAB PO SCH (09:45)
[2020-09-09] MEDS: Timolol 0.5% Ophth Soln 5 ml Bottle EA EYE SCH ×2 (09:45→20:34)
[2020-09-09] MEDS: Fish Oil 1,000 MG CAP PO SCH (09:46)
[2020-09-09] MEDS: Saccharomyces boulardii 250 MG CAP PO SCH (09:46)
[2020-09-09] MEDS: Aspirin 81 mg Enteric Coated Tablet PO SCH ×2 (09:46→20:34)
[2020-09-09] MEDS: Multivitamin W/ Minerals 1 TAB PO SCH (09:46)
[2020-09-09] MEDS: DIFLUPREDNATE EA EYE SCH (09:47)
[2020-09-09] MEDS: Triamcinolone 0.1% Cream 15 GM TUBE TOP SCH ×2 (09:47→20:35)
[2020-09-09] MEDS: Glimepiride 2 MG TAB PO SCH (18:12)
[2020-09-09] MEDS: Loratadine 10 MG TAB PO SCH (20:34)
[2020-09-09] MEDS: Losartan 25 MG TAB PO SCH (20:34)
[2020-09-09] MEDS: METRONIDAZOLE 1% TOP SCH (20:35)
[2020-09-10] MEDS: Cholecalciferol 1,000 UNITS (25 MCG) TAB PO SCH (09:58)
[2020-09-10] MEDS: Multivitamin W/ Minerals 1 TAB PO SCH (09:58)
[2020-09-10] MEDS: Senokot S 8.6-50 MG TAB PO SCH ×2 (09:58→20:32)
[2020-09-10] MEDS: Fish Oil 1,000 MG CAP PO SCH (09:58)
[2020-09-10] MEDS: Saccharomyces boulardii 250 MG CAP PO SCH (09:58)
[2020-09-10] MEDS: Aspirin 81 mg Enteric Coated Tablet PO SCH ×2 (09:59→20:32)
[2020-09-10] MEDS: DIFLUPREDNATE EA EYE SCH (09:59)
[2020-09-10] MEDS: Timolol 0.5% Ophth Soln 5 ml Bottle EA EYE SCH ×2 (09:59→20:31)
[2020-09-10] MEDS: Triamcinolone 0.1% Cream 15 GM TUBE TOP SCH ×2 (09:59→20:31)
[2020-09-10] MEDS: Glimepiride 2 MG TAB PO SCH (17:58)
[2020-09-10] MEDS: Loratadine 10 MG TAB PO SCH (20:31)
[2020-09-10] MEDS: Losartan 25 MG TAB PO SCH (20:32)
[2020-09-10] MEDS: METRONIDAZOLE 1% TOP SCH (20:32)
[2020-09-11 05:12] LABS: #Basophils 0.1 thou/uL (0.0-0.2); #Eosinphils 0.2 thou/uL (0.0-0.7); #Lymphocytes 2.9 thou/uL (1.20-3.40); #Monocytes 0.7 thou/uL (0.11-0.59); #Neutrophils 6.1 thou/uL (1.40-6.50); %Basophils 1.1 % (0.0-1.0); %Eosinophils 2.4 % (0.0-10.0); %Monocytes 7.2 % (0.0-10.0); %Neutrophils 60.4 % (42.0-75.0); Hemoglobin 13.4 g/dL (12.0-16.0); Mean Corpuscular HGB CONC 31.1 g/dL (32.0-36.0); Mean Corpuscular Hemoglobin 28.8 pg (27.0-31.0); Mean Corpuscular Volume 92.7 fL (78.0-98.0); Mean Platelet Volume 7.7 fL (7.4-10.4); Platelet Count 346 thou/uL (130-400); RBC Distribution Width 12.5 % (11.5-14.5); Red Blood Cell (RBC) Count 4.64 mill/uL (4.20-5.40); White Blood Cell (WBC) Count 10.1 thou/uL (4.8-10.8)
[2020-09-11 05:24] LABS: Anion Gap 14 mmol/L (10-20); BUN (Urea Nitrogen) 22 mg/dL (9.8-20.1); Calc. Creatinine Clearance 65 mL/min (70-130); Calcium 9.7 mg/dL (7.8-10.44); Carbon Dioxide 26 mmol/L (23-31); Chloride 100 mmol/L (98-107); Glucose 116 mg/dL (83-110); Potassium 4.6 mmol/L (3.5-5.1); Sodium 135 mmol/L (136-145)
[2020-09-11] MEDS: Aspirin 81 mg Enteric Coated Tablet PO SCH ×2 (09:14→21:10)
[2020-09-11] MEDS: Lubiprostone 24 MCG CAP PO SCH (09:14)
[2020-09-11] MEDS: Cholecalciferol 1,000 UNITS (25 MCG) TAB PO SCH (09:14)
[2020-09-11] MEDS: Timolol 0.5% Ophth Soln 5 ml Bottle EA EYE SCH ×2 (09:15→21:09)
[2020-09-11] MEDS: Fish Oil 1,000 MG CAP PO SCH (09:15)
[2020-09-11] MEDS: Senokot S 8.6-50 MG TAB PO SCH ×2 (09:15→21:10)
[2020-09-11] MEDS: Saccharomyces boulardii 250 MG CAP PO SCH (09:15)
[2020-09-11] MEDS: Multivitamin W/ Minerals 1 TAB PO SCH (09:15)
[2020-09-11] MEDS: Triamcinolone 0.1% Cream 15 GM TUBE TOP SCH ×2 (09:16→21:13)
[2020-09-11] MEDS: Acetaminophen 500 MG TAB PO PRN (09:16)
[2020-09-11] MEDS: DIFLUPREDNATE EA EYE SCH (09:18)
[2020-09-11] MEDS: Glimepiride 2 MG TAB PO SCH (17:50)
[2020-09-11] MEDS: Loratadine 10 MG TAB PO SCH (21:10)
[2020-09-11] MEDS: METRONIDAZOLE 1% TOP SCH (21:11)
[2020-09-11] MEDS: CLOBETASOL PROPIONATE TOP SCH (21:11)
[2020-09-11] MEDS: Losartan 25 MG TAB PO SCH (21:11)
[2020-09-12] MEDS: Aspirin 81 mg Enteric Coated Tablet PO SCH ×2 (09:15→20:58)
[2020-09-12] MEDS: Fish Oil 1,000 MG CAP PO SCH (09:15)
[2020-09-12] MEDS: Cholecalciferol 1,000 UNITS (25 MCG) TAB PO SCH (09:15)
[2020-09-12] MEDS: Senokot S 8.6-50 MG TAB PO SCH ×2 (09:16→20:59)
[2020-09-12] MEDS: Saccharomyces boulardii 250 MG CAP PO SCH (09:16)
[2020-09-12] MEDS: Lubiprostone 24 MCG CAP PO SCH (09:16)
[2020-09-12] MEDS: DIFLUPREDNATE EA EYE SCH (09:16)
[2020-09-12] MEDS: Multivitamin W/ Minerals 1 TAB PO SCH (09:16)
[2020-09-12] MEDS: Triamcinolone 0.1% Cream 15 GM TUBE TOP SCH ×2 (09:17→20:58)
[2020-09-12] MEDS: Timolol 0.5% Ophth Soln 5 ml Bottle EA EYE SCH ×2 (09:17→20:58)
[2020-09-12] MEDS: Glimepiride 2 MG TAB PO SCH (17:01)
[2020-09-12] MEDS: Losartan 25 MG TAB PO SCH (20:58)
[2020-09-12] MEDS: Loratadine 10 MG TAB PO SCH (20:58)
[2020-09-12] MEDS: METRONIDAZOLE 1% TOP SCH (21:05)
[2020-09-13] MEDS: Fish Oil 1,000 MG CAP PO SCH (08:30)
[2020-09-13] MEDS: Cholecalciferol 1,000 UNITS (25 MCG) TAB PO SCH (08:30)
[2020-09-13] MEDS: Aspirin 81 mg Enteric Coated Tablet PO SCH ×2 (08:30→20:16)
[2020-09-13] MEDS: DIFLUPREDNATE EA EYE SCH (08:31)
[2020-09-13] MEDS: Senokot S 8.6-50 MG TAB PO SCH ×2 (08:31→20:15)
[2020-09-13] MEDS: Multivitamin W/ Minerals 1 TAB PO SCH (08:31)
[2020-09-13] MEDS: Lubiprostone 24 MCG CAP PO SCH (08:31)
[2020-09-13] MEDS: Saccharomyces boulardii 250 MG CAP PO SCH (08:31)
[2020-09-13] MEDS: Timolol 0.5% Ophth Soln 5 ml Bottle EA EYE SCH ×2 (08:32→20:15)
[2020-09-13] MEDS: Triamcinolone 0.1% Cream 15 GM TUBE TOP SCH ×2 (08:33→20:14)
[2020-09-13] MEDS ORDERED: Ondansetron ODT 4 MG TAB PO PRN (16:21)
[2020-09-13] MEDS: Glimepiride 2 MG TAB PO SCH (16:50)
[2020-09-13] MEDS: Losartan 25 MG TAB PO SCH (20:15)
[2020-09-13] MEDS: METRONIDAZOLE 1% TOP SCH (20:15)
[2020-09-13] MEDS: Loratadine 10 MG TAB PO SCH (20:15)
[2020-09-13] MEDS: CLOBETASOL PROPIONATE TOP SCH (20:16)
[2020-09-14] MEDS: Cholecalciferol 1,000 UNITS (25 MCG) TAB PO SCH (08:59)
[2020-09-14] MEDS: Senokot S 8.6-50 MG TAB PO SCH ×2 (08:59→21:33)
[2020-09-14] MEDS: Saccharomyces boulardii 250 MG CAP PO SCH (08:59)
[2020-09-14] MEDS: Fish Oil 1,000 MG CAP PO SCH (09:00)
[2020-09-14] MEDS: Aspirin 81 mg Enteric Coated Tablet PO SCH ×2 (09:00→21:32)
[2020-09-14] MEDS: Triamcinolone 0.1% Cream 15 GM TUBE TOP SCH ×2 (09:00→21:30)
[2020-09-14] MEDS: Multivitamin W/ Minerals 1 TAB PO SCH (09:00)
[2020-09-14] MEDS: Lubiprostone 24 MCG CAP PO SCH (09:00)
[2020-09-14] MEDS: Timolol 0.5% Ophth Soln 5 ml Bottle EA EYE SCH ×2 (09:03→21:31)
[2020-09-14] MEDS: DIFLUPREDNATE EA EYE SCH (09:04)
[2020-09-14] MEDS: Glimepiride 2 MG TAB PO SCH (17:27)
[2020-09-14] MEDS: Losartan 25 MG TAB PO SCH (21:32)
[2020-09-14] MEDS: Loratadine 10 MG TAB PO SCH (21:32)
[2020-09-14] MEDS: METRONIDAZOLE 1% TOP SCH (21:33)
[2020-09-14] MEDS: HumaLOG 300 UNITS/3 ML VIAL SC PRN (21:37)
[2020-09-15 06:41] LABS: Anion Gap 13 mmol/L (10-20); BUN (Urea Nitrogen) 22 mg/dL (9.8-20.1); Calc. Creatinine Clearance 67 mL/min (70-130); Calcium 9.4 mg/dL (7.8-10.44); Carbon Dioxide 24 mmol/L (23-31); Chloride 101 mmol/L (98-107); Glucose 115 mg/dL (83-110); Potassium 3.9 mmol/L (3.5-5.1); Sodium 134 mmol/L (136-145)
[2020-09-15] MEDS: Saccharomyces boulardii 250 MG CAP PO SCH (08:52)
[2020-09-15] MEDS: Aspirin 81 mg Enteric Coated Tablet PO SCH ×2 (08:52→20:44)
[2020-09-15] MEDS: Cholecalciferol 1,000 UNITS (25 MCG) TAB PO SCH (08:52)
[2020-09-15] MEDS: Senokot S 8.6-50 MG TAB PO SCH ×2 (08:52→20:47)
[2020-09-15] MEDS: Multivitamin W/ Minerals 1 TAB PO SCH (08:52)
[2020-09-15] MEDS: Fish Oil 1,000 MG CAP PO SCH (08:52)
[2020-09-15] MEDS: Lubiprostone 24 MCG CAP PO SCH (08:52)
[2020-09-15] MEDS: Triamcinolone 0.1% Cream 15 GM TUBE TOP SCH ×2 (08:53→20:45)
[2020-09-15] MEDS: DIFLUPREDNATE EA EYE SCH (08:54)
[2020-09-15] MEDS: Timolol 0.5% Ophth Soln 5 ml Bottle EA EYE SCH ×2 (08:56→20:46)
[2020-09-15] MEDS: Glimepiride 2 MG TAB PO SCH (16:42)
[2020-09-15] MEDS: Losartan 25 MG TAB PO SCH (20:44)
[2020-09-15] MEDS: Loratadine 10 MG TAB PO SCH (20:44)
[2020-09-15] MEDS: CLOBETASOL PROPIONATE TOP SCH (20:45)
[2020-09-15] MEDS: METRONIDAZOLE 1% TOP SCH (20:47)
[2020-09-16] MEDS: Cholecalciferol 1,000 UNITS (25 MCG) TAB PO SCH (09:40)
[2020-09-16] MEDS: Fish Oil 1,000 MG CAP PO SCH (09:40)
[2020-09-16] MEDS: Multivitamin W/ Minerals 1 TAB PO SCH (09:40)
[2020-09-16] MEDS: Senokot S 8.6-50 MG TAB PO SCH ×2 (09:40→20:38)
[2020-09-16] MEDS: Saccharomyces boulardii 250 MG CAP PO SCH (09:40)
[2020-09-16] MEDS: Aspirin 81 mg Enteric Coated Tablet PO SCH ×2 (09:40→20:37)
[2020-09-16] MEDS: Lubiprostone 24 MCG CAP PO SCH (09:40)
[2020-09-16] MEDS: DIFLUPREDNATE EA EYE SCH (09:42)
[2020-09-16] MEDS: Triamcinolone 0.1% Cream 15 GM TUBE TOP SCH ×2 (09:42→20:38)
[2020-09-16] MEDS: Timolol 0.5% Ophth Soln 5 ml Bottle EA EYE SCH ×2 (09:42→20:37)
[2020-09-16] MEDS: HumaLOG 300 UNITS/3 ML VIAL SC PRN (11:42)
[2020-09-16] MEDS: Glimepiride 2 MG TAB PO SCH (17:42)
[2020-09-16] MEDS: Losartan 25 MG TAB PO SCH (20:37)
[2020-09-16] MEDS: Loratadine 10 MG TAB PO SCH (20:37)
[2020-09-16] MEDS: METRONIDAZOLE 1% TOP SCH (20:38)
[2020-09-17] MEDS: Triamcinolone 0.1% Cream 15 GM TUBE TOP SCH ×2 (09:07→21:50)
[2020-09-17] MEDS: DIFLUPREDNATE EA EYE SCH (09:07)
[2020-09-17] MEDS: Saccharomyces boulardii 250 MG CAP PO SCH (09:08)
[2020-09-17] MEDS: Lubiprostone 24 MCG CAP PO SCH (09:08)
[2020-09-17] MEDS: Fish Oil 1,000 MG CAP PO SCH (09:08)
[2020-09-17] MEDS: Senokot S 8.6-50 MG TAB PO SCH ×2 (09:08→21:47)
[2020-09-17] MEDS: Cholecalciferol 1,000 UNITS (25 MCG) TAB PO SCH (09:08)
[2020-09-17] MEDS: Aspirin 81 mg Enteric Coated Tablet PO SCH ×2 (09:08→21:46)
[2020-09-17] MEDS: Multivitamin W/ Minerals 1 TAB PO SCH (09:08)
[2020-09-17] MEDS: Timolol 0.5% Ophth Soln 5 ml Bottle EA EYE SCH ×2 (09:10→21:50)
[2020-09-17] MEDS: Glimepiride 2 MG TAB PO SCH (16:35)
[2020-09-17] MEDS: Loratadine 10 MG TAB PO SCH (21:46)
[2020-09-17] MEDS: METRONIDAZOLE 1% TOP SCH (21:49)
[2020-09-18] MEDS: Cholecalciferol 1,000 UNITS (25 MCG) TAB PO SCH (08:59)
[2020-09-18] MEDS: Aspirin 81 mg Enteric Coated Tablet PO SCH ×2 (08:59→21:37)
[2020-09-18] MEDS: Fish Oil 1,000 MG CAP PO SCH (09:00)
[2020-09-18] MEDS: Lubiprostone 24 MCG CAP PO SCH (09:00)
[2020-09-18] MEDS: Multivitamin W/ Minerals 1 TAB PO SCH (09:02)
[2020-09-18] MEDS: Senokot S 8.6-50 MG TAB PO SCH ×2 (09:03→21:38)
[2020-09-18] MEDS: DIFLUPREDNATE EA EYE SCH (09:03)
[2020-09-18] MEDS: Saccharomyces boulardii 250 MG CAP PO SCH (09:03)
[2020-09-18] MEDS: Triamcinolone 0.1% Cream 15 GM TUBE TOP SCH ×2 (09:04→21:38)
[2020-09-18] MEDS: Timolol 0.5% Ophth Soln 5 ml Bottle EA EYE SCH ×2 (09:04→21:37)
[2020-09-18] MEDS: Losartan 25 MG TAB PO SCH (09:07)
[2020-09-18] MEDS: Glimepiride 2 MG TAB PO SCH (17:38)
[2020-09-18] MEDS: Famotidine 20 MG TAB PO SCH (21:37)
[2020-09-18] MEDS: Loratadine 10 MG TAB PO SCH (21:37)
[2020-09-18] MEDS: METRONIDAZOLE 1% TOP SCH (21:38)
[2020-09-18] MEDS: CLOBETASOL PROPIONATE TOP SCH (21:38)
[2020-09-19] MEDS: Cholecalciferol 1,000 UNITS (25 MCG) TAB PO SCH (10:07)
[2020-09-19] MEDS: Famotidine 20 MG TAB PO SCH ×2 (10:07→22:14)
[2020-09-19] MEDS: Losartan 25 MG TAB PO SCH (10:07)
[2020-09-19] MEDS: Lubiprostone 24 MCG CAP PO SCH (10:07)
[2020-09-19] MEDS: Multivitamin W/ Minerals 1 TAB PO SCH (10:07)
[2020-09-19] MEDS: Saccharomyces boulardii 250 MG CAP PO SCH (10:07)
[2020-09-19] MEDS: Aspirin 81 mg Enteric Coated Tablet PO SCH ×2 (10:08→22:15)
[2020-09-19] MEDS: DIFLUPREDNATE EA EYE SCH (10:08)
[2020-09-19] MEDS: Timolol 0.5% Ophth Soln 5 ml Bottle EA EYE SCH ×2 (10:08→22:15)
[2020-09-19] MEDS: Fish Oil 1,000 MG CAP PO SCH (10:08)
[2020-09-19] MEDS: Senokot S 8.6-50 MG TAB PO SCH ×2 (10:09→22:16)
[2020-09-19] MEDS: Triamcinolone 0.1% Cream 15 GM TUBE TOP SCH ×2 (10:13→22:16)
[2020-09-19] MEDS: Glimepiride 2 MG TAB PO SCH (16:32)
[2020-09-19] MEDS: Loratadine 10 MG TAB PO SCH (22:15)
[2020-09-19] MEDS: METRONIDAZOLE 1% TOP SCH (22:16)
[2020-09-20 06:30] LABS: Anion Gap 14 mmol/L (10-20); BUN (Urea Nitrogen) 20 mg/dL (9.8-20.1); Calc. Creatinine Clearance 65 mL/min (70-130); Carbon Dioxide 22 mmol/L (23-31); Chloride 102 mmol/L (98-107); Glucose 115 mg/dL (83-110); Sodium 134 mmol/L (136-145)
[2020-09-20] MEDS: Aspirin 81 mg Enteric Coated Tablet PO SCH ×2 (08:43→21:02)
[2020-09-20] MEDS: Famotidine 20 MG TAB PO SCH ×2 (08:43→21:02)
[2020-09-20] MEDS: Fish Oil 1,000 MG CAP PO SCH (08:43)
[2020-09-20] MEDS: Cholecalciferol 1,000 UNITS (25 MCG) TAB PO SCH (08:43)
[2020-09-20] MEDS: Senokot S 8.6-50 MG TAB PO SCH ×2 (08:44→21:01)
[2020-09-20] MEDS: Multivitamin W/ Minerals 1 TAB PO SCH (08:44)
[2020-09-20] MEDS: DIFLUPREDNATE EA EYE SCH (08:44)
[2020-09-20] MEDS: Saccharomyces boulardii 250 MG CAP PO SCH (08:44)
[2020-09-20] MEDS: Lubiprostone 24 MCG CAP PO SCH (08:44)
[2020-09-20] MEDS: Losartan 25 MG TAB PO SCH (08:44)
[2020-09-20] MEDS: Timolol 0.5% Ophth Soln 5 ml Bottle EA EYE SCH ×2 (08:45→21:02)
[2020-09-20] MEDS: Triamcinolone 0.1% Cream 15 GM TUBE TOP SCH ×2 (08:45→21:03)
[2020-09-20] MEDS: Acetaminophen 500 MG TAB PO PRN (08:47)
[2020-09-20] MEDS: Glimepiride 2 MG TAB PO SCH (17:10)
[2020-09-20] MEDS: Loratadine 10 MG TAB PO SCH (21:01)
[2020-09-20] MEDS: CLOBETASOL PROPIONATE TOP SCH (21:02)
[2020-09-20] MEDS: METRONIDAZOLE 1% TOP SCH (21:02)
[2020-09-21] MEDS: Aspirin 81 mg Enteric Coated Tablet PO SCH ×2 (08:50→20:27)
[2020-09-21] MEDS: Losartan 25 MG TAB PO SCH (08:50)
[2020-09-21] MEDS: Famotidine 20 MG TAB PO SCH ×2 (08:50→20:27)
[2020-09-21] MEDS: Fish Oil 1,000 MG CAP PO SCH (08:50)
[2020-09-21] MEDS: Cholecalciferol 1,000 UNITS (25 MCG) TAB PO SCH (08:50)
[2020-09-21] MEDS: DIFLUPREDNATE EA EYE SCH (08:51)
[2020-09-21] MEDS: Saccharomyces boulardii 250 MG CAP PO SCH (08:51)
[2020-09-21] MEDS: Senokot S 8.6-50 MG TAB PO SCH ×2 (08:51→20:27)
[2020-09-21] MEDS: Lubiprostone 24 MCG CAP PO SCH (08:51)
[2020-09-21] MEDS: Multivitamin W/ Minerals 1 TAB PO SCH (08:51)
[2020-09-21] MEDS: Timolol 0.5% Ophth Soln 5 ml Bottle EA EYE SCH ×2 (08:52→20:27)
[2020-09-21] MEDS: Triamcinolone 0.1% Cream 15 GM TUBE TOP SCH ×2 (08:52→20:26)
[2020-09-21] MEDS: Glimepiride 2 MG TAB PO SCH (17:34)
[2020-09-21] MEDS: Loratadine 10 MG TAB PO SCH (20:28)
[2020-09-21] MEDS: METRONIDAZOLE 1% TOP SCH (20:29)
[2020-09-22] MEDS: Timolol 0.5% Ophth Soln 5 ml Bottle EA EYE SCH ×2 (08:48→20:44)
[2020-09-22] MEDS: DIFLUPREDNATE EA EYE SCH (08:49)
[2020-09-22] MEDS: Cholecalciferol 1,000 UNITS (25 MCG) TAB PO SCH (08:50)
[2020-09-22] MEDS: Saccharomyces boulardii 250 MG CAP PO SCH (08:50)
[2020-09-22] MEDS: Multivitamin W/ Minerals 1 TAB PO SCH (08:50)
[2020-09-22] MEDS: Losartan 25 MG TAB PO SCH (08:50)
[2020-09-22] MEDS: Aspirin 81 mg Enteric Coated Tablet PO SCH ×2 (08:51→20:44)
[2020-09-22] MEDS: Senokot S 8.6-50 MG TAB PO SCH ×2 (08:51→20:44)
[2020-09-22] MEDS: Lubiprostone 24 MCG CAP PO SCH (08:51)
[2020-09-22] MEDS: Famotidine 20 MG TAB PO SCH ×2 (08:51→20:44)
[2020-09-22] MEDS: Fish Oil 1,000 MG CAP PO SCH (08:51)
[2020-09-22] MEDS: Triamcinolone 0.1% Cream 15 GM TUBE TOP SCH ×2 (08:51→20:43)
[2020-09-22] MEDS: Glimepiride 2 MG TAB PO SCH (17:21)
[2020-09-22] MEDS: Loratadine 10 MG TAB PO SCH (20:45)
[2020-09-22] MEDS: CLOBETASOL PROPIONATE TOP SCH (20:46)
[2020-09-22] MEDS: METRONIDAZOLE 1% TOP SCH (20:46)
[2020-09-23] MEDS: Fish Oil 1,000 MG CAP PO SCH (08:54)
[2020-09-23] MEDS: Famotidine 20 MG TAB PO SCH ×2 (08:54→20:49)
[2020-09-23] MEDS: Multivitamin W/ Minerals 1 TAB PO SCH (08:54)
[2020-09-23] MEDS: Cholecalciferol 1,000 UNITS (25 MCG) TAB PO SCH (08:54)
[2020-09-23] MEDS: Saccharomyces boulardii 250 MG CAP PO SCH (08:54)
[2020-09-23] MEDS: Senokot S 8.6-50 MG TAB PO SCH ×2 (08:55→20:49)
[2020-09-23] MEDS: Aspirin 81 mg Enteric Coated Tablet PO SCH ×2 (08:55→20:49)
[2020-09-23] MEDS: Lubiprostone 24 MCG CAP PO SCH (08:55)
[2020-09-23] MEDS: Losartan 25 MG TAB PO SCH (08:56)
[2020-09-23] MEDS: Triamcinolone 0.1% Cream 15 GM TUBE TOP SCH ×2 (08:57→20:48)
[2020-09-23] MEDS: DIFLUPREDNATE EA EYE SCH (08:57)
[2020-09-23] MEDS: Timolol 0.5% Ophth Soln 5 ml Bottle EA EYE SCH ×2 (08:59→20:48)
[2020-09-23] MEDS: Glimepiride 2 MG TAB PO SCH (16:50)
[2020-09-23] MEDS: Loratadine 10 MG TAB PO SCH (20:48)
[2020-09-23] MEDS: METRONIDAZOLE 1% TOP SCH (20:49)
[2020-09-23 21:07] VITALS: BMI 40.7
[2020-09-24] MEDS: Lubiprostone 24 MCG CAP PO SCH (09:43)
[2020-09-24] MEDS: Fish Oil 1,000 MG CAP PO SCH (09:43)
[2020-09-24] MEDS: Cholecalciferol 1,000 UNITS (25 MCG) TAB PO SCH (09:43)
[2020-09-24] MEDS: Multivitamin W/ Minerals 1 TAB PO SCH (09:44)
[2020-09-24] MEDS: Losartan 25 MG TAB PO SCH (09:44)
[2020-09-24] MEDS: Timolol 0.5% Ophth Soln 5 ml Bottle EA EYE SCH ×2 (09:44→20:48)
[2020-09-24] MEDS: Aspirin 81 mg Enteric Coated Tablet PO SCH ×2 (09:44→20:49)
[2020-09-24] MEDS: Triamcinolone 0.1% Cream 15 GM TUBE TOP SCH ×2 (09:44→20:48)
[2020-09-24] MEDS: Saccharomyces boulardii 250 MG CAP PO SCH (09:44)
[2020-09-24] MEDS: DIFLUPREDNATE EA EYE SCH (09:44)
[2020-09-24] MEDS: Famotidine 20 MG TAB PO SCH ×2 (09:44→20:49)
[2020-09-24] MEDS: Senokot S 8.6-50 MG TAB PO SCH ×2 (09:45→20:54)
[2020-09-24 14:54] LABS: #Basophils 0.1 thou/uL (0.0-0.2); #Eosinphils 0.2 thou/uL (0.0-0.7); #Lymphocytes 2.2 thou/uL (1.20-3.40); #Monocytes 0.6 thou/uL (0.11-0.59); #Neutrophils 6.8 thou/uL (1.40-6.50); %Basophils 0.6 % (0.0-1.0); %Eosinophils 1.8 % (0.0-10.0); %Lymphocytes 22.3 % (21.0-51.0); %Monocytes 6.4 % (0.0-10.0); %Neutrophils 68.9 % (42.0-75.0); Hemoglobin 12.9 g/dL (12.0-16.0); Mean Corpuscular HGB CONC 30.6 g/dL (32.0-36.0); Mean Corpuscular Hemoglobin 28.4 pg (27.0-31.0); Mean Corpuscular Volume 92.8 fL (78.0-98.0); Mean Platelet Volume 7.6 fL (7.4-10.4); Platelet Count 278 thou/uL (130-400); RBC Distribution Width 12.1 % (11.5-14.5); Red Blood Cell (RBC) Count 4.54 mill/uL (4.20-5.40); White Blood Cell (WBC) Count 9.8 thou/uL (4.8-10.8)
[2020-09-24] MEDS: Glimepiride 2 MG TAB PO SCH (16:22)
[2020-09-24 18:41] LABS: Bilirubin Negative (Negative); Blood, Urine Negative (Negative); Clarity Clear (Clear); Glucose, Urine (Dipstick) Negative (Negative); Ketone, Urine Negative (Negative); Leukocyte Negative (Negative); Nitrite Negative (Negative); Protein, Urine (Dipstick) Negative (Neg-Trace); Specific Gravity, Urine 1.025 (1.005-1.030); Urobilinogen 0.2 mg/dL (Less than 2)
[2020-09-24 18:43] LABS: Urine Culture Reflex No No
[2020-09-24 18:52] LABS: Bacteria/HPF None Seen HPF (None Seen); RBC/HPF 0-3 HPF (0-3); Squamous Epithelial 0-3 HPF (0-3); WBC/HPF 0-3 HPF (0-3)
[2020-09-24] MEDS: Loratadine 10 MG TAB PO SCH (20:48)
[2020-09-24] MEDS: METRONIDAZOLE 1% TOP SCH (20:53)
[2020-09-25 07:42] VITALS: BP 180/97; TEMP 97.4
[2020-09-25] MEDS: Fish Oil 1,000 MG CAP PO SCH (09:12)
[2020-09-25] MEDS: Losartan 25 MG TAB PO SCH (09:12)
[2020-09-25] MEDS: Cholecalciferol 1,000 UNITS (25 MCG) TAB PO SCH (09:12)
[2020-09-25] MEDS: Aspirin 81 mg Enteric Coated Tablet PO SCH (09:12)
[2020-09-25] MEDS: Famotidine 20 MG TAB PO SCH (09:12)
[2020-09-25] MEDS: Multivitamin W/ Minerals 1 TAB PO SCH (09:13)
[2020-09-25] MEDS: Senokot S 8.6-50 MG TAB PO SCH (09:13)
[2020-09-25] MEDS: Timolol 0.5% Ophth Soln 5 ml Bottle EA EYE SCH (09:13)
[2020-09-25] MEDS: DIFLUPREDNATE EA EYE SCH (09:13)
[2020-09-25] MEDS: Saccharomyces boulardii 250 MG CAP PO SCH (09:13)
[2020-09-25] MEDS: Lubiprostone 24 MCG CAP PO SCH (09:13)
[2020-09-25] MEDS: Triamcinolone 0.1% Cream 15 GM TUBE TOP SCH (09:14)
[2020-09-25] MEDS: cloNIDine 0.1 MG TAB PO PRN (09:14)
== END 2020-09-25 14:50 | disposition home health service (06) | DRG 948 ==
LOC: UNDOADMIN 16:31 → NAV ACUTE 16:31 → UNDOADMIN 09-02 01:31 → NAV ACUTE 09-02 06:38
PROVIDERS: ADMIT Internal Medicine; ATTEND Internal Medicine
DX: R53.81 Other malaise (principal); N39.0 Urinary tract infection, site not specified; E87.1 Hypo-osmolality and hyponatremia; E11.9 Type 2 diabetes mellitus without complications; I10 Essential (primary) hypertension; F32.9 Major depressive disorder, single episode, unspecified; F41.9 Anxiety disorder, unspecified; H54.8 Legal blindness, as defined in USA; J45.909 Unspecified asthma, uncomplicated; Z90.49 Acquired absence of other specified parts of digestive tract; H40.9 Unspecified glaucoma; K59.09 Other constipation; G47.33 Obstructive sleep apnea (adult) (pediatric); L71.9 Rosacea, unspecified; L21.9 Seborrheic dermatitis, unspecified; E86.0 Dehydration; Z91.19 Patient's noncompliance with other medical treatment and regimen; Z79.51 Long term (current) use of inhaled steroids; Z79.82 Long term (current) use of aspirin; Z79.899 Other long term (current) drug therapy
CPT/HCPCS: 36415; 36416; 80048; 81001; 85025; J1815; J7620

== ENCOUNTER 2020-11-02 18:01 | Inpatient (IN) | payer MEDICARE, OTHER ==
[2020-11-02] MEDS ORDERED: Acetaminophen 500 MG TAB PO PRN (20:18)
[2020-11-02] MEDS ORDERED: Acetaminophen 325 MG TAB PO PRN (20:18)
[2020-11-02] MEDS ORDERED: ALPRAZolam 0.25 MG TAB PO PRN (20:20)
[2020-11-02] MEDS ORDERED: Albuterol Sulfate 2.5 mg/3 ml Neb NEB PRN (20:20)
[2020-11-02] MEDS ORDERED: Artificial Tear Sol 15 ML BOT EA EYE PRN (20:21)
[2020-11-02] MEDS ORDERED: Famotidine 20 MG TAB PO PRN (20:23)
[2020-11-02] MEDS ORDERED: Dextrose 50% Abboject 50 ML SYRINGE IVP PRN (20:30)
[2020-11-02] MEDS ORDERED: HumaLOG 300 UNITS/3 ML VIAL SC PRN ×2 (20:30)
[2020-11-02] MEDS ORDERED: Lubiprostone 24 MCG CAP PO PRN (20:30)
[2020-11-02] MEDS ORDERED: Dextrose 5% in Water 1,000 ML IV PRN (20:30)
[2020-11-02] MEDS: Timolol 0.5% Ophth Soln 5 ml Bottle EA EYE SCH (21:55)
[2020-11-02] MEDS: Aspirin 81 mg Enteric Coated Tablet PO SCH (21:57)
[2020-11-02] MEDS: Glimepiride 2 MG TAB PO SCH (21:57)
[2020-11-02] MEDS: Nitrofurantoin Macrocrystal 50 MG CAP PO SCH (21:57)
[2020-11-02] MEDS: Senokot S 8.6-50 MG TAB PO SCH (21:57)
[2020-11-02] MEDS: Loratadine 10 MG TAB PO SCH (21:59)
[2020-11-03 07:51] LABS: Anion Gap 17 mmol/L (10-20); BUN (Urea Nitrogen) 17 mg/dL (9.8-20.1); Calc. Creatinine Clearance 65 mL/min (70-130); Calcium 9.7 mg/dL (7.8-10.44); Carbon Dioxide 24 mmol/L (23-31); Chloride 99 mmol/L (98-107); Glucose 164 mg/dL (83-110); Potassium 4.4 mmol/L (3.5-5.1); Sodium 136 mmol/L (136-145)
[2020-11-03 07:58] LABS: Hemoglobin 14.6 g/dL (12.0-16.0); MDiff Complete? YES; Mean Corpuscular Hemoglobin 29.2 pg (27.0-31.0); Mean Platelet Volume 7.2 fL (7.4-10.4); Platelet Count 289 thou/uL (130-400); RBC Distribution Width 12.1 % (11.5-14.5); Red Blood Cell (RBC) Count 5.02 mill/uL (4.20-5.40); White Blood Cell (WBC) Count 22.4 thou/uL (4.8-10.8)
[2020-11-03 07:59] LABS: Band 7 % (5-11); Lymphocytes 7 % (21-51); Monocytes 1 % (0-10); Neutrophil 85 % (42-75); Platelet Morphology Comment Appears Adequate
[2020-11-03] MEDS ORDERED: Bisacodyl 10 MG SUPP PR PRN (08:37)
[2020-11-03] MEDS ORDERED: Polyethylene Glycol 3350 17 GM Packet PO PRN (08:49)
[2020-11-03] MEDS ORDERED: ALPRAZolam 0.25 MG TAB PO PRN (08:49)
[2020-11-03] MEDS ORDERED: Polyethylene Glycol 3350 17 GM Packet PO SCH (09:00)
[2020-11-03] MEDS: Multivitamin W/ Minerals 1 TAB PO SCH (09:22)
[2020-11-03] MEDS: Fish Oil 1,000 MG CAP PO SCH (09:22)
[2020-11-03] MEDS: Aspirin 81 mg Enteric Coated Tablet PO SCH ×2 (09:22→20:50)
[2020-11-03] MEDS: Losartan Potassium 50 MG TAB PO SCH (09:22)
[2020-11-03] MEDS: Cholecalciferol 1,000 UNITS (25 MCG) TAB PO SCH (09:22)
[2020-11-03] MEDS: Senokot S 8.6-50 MG TAB PO SCH ×2 (09:23→20:50)
[2020-11-03] MEDS: DIFLUPREDNATE EYE EA EYE SCH (09:26)
[2020-11-03] MEDS: Famotidine 20 MG TAB PO SCH ×2 (09:28→20:50)
[2020-11-03] MEDS: Timolol 0.5% Ophth Soln 5 ml Bottle EA EYE SCH ×2 (09:28→20:49)
[2020-11-03] MEDS: Nitrofurantoin Macrocrystal 50 MG CAP PO SCH (20:50)
[2020-11-03] MEDS: Glimepiride 2 MG TAB PO SCH (20:50)
[2020-11-03] MEDS: Loratadine 10 MG TAB PO SCH (20:52)
[2020-11-03] MEDS: CLOBETASOL 0.05% TOP SCH (20:55)
[2020-11-03 21:07] LABS: Bilirubin Negative (Negative); Blood, Urine Negative (Negative); Clarity Slightly Cloudy (Clear); Glucose, Urine (Dipstick) Negative (Negative); Ketone, Urine Negative (Negative); Leukocyte Negative (Negative); Nitrite Negative (Negative); Protein, Urine (Dipstick) Negative (Neg-Trace); Specific Gravity, Urine 1.015 (1.005-1.030); Urobilinogen 0.2 mg/dL (Less than 2); pH, Urine 6.5 (5.0-9.0)
[2020-11-04 08:26] LABS: Band 29 % (5-11); Eosinophils 1 % (0-10); Hemoglobin 11.4 g/dL (12.0-16.0); Lymphocytes 12 % (21-51); MDiff Complete? YES; Mean Corpuscular HGB CONC 31.7 g/dL (32.0-36.0); Mean Corpuscular Volume 91.3 fL (78.0-98.0); Mean Platelet Volume 6.3 fL (7.4-10.4); Monocytes 2 % (0-10); Neutrophil 56 % (42-75); Platelet Count 356 thou/uL (130-400); Platelet Morphology Comment Appears Adequate; RBC Distribution Width 12.4 % (11.5-14.5); RBC Morphology Normal; Red Blood Cell (RBC) Count 3.94 mill/uL (4.20-5.40); White Blood Cell (WBC) Count 18.7 thou/uL (4.8-10.8)
[2020-11-04] MEDS: Aspirin 81 mg Enteric Coated Tablet PO SCH ×2 (09:50→21:13)
[2020-11-04] MEDS: Famotidine 20 MG TAB PO SCH ×2 (09:50→21:13)
[2020-11-04] MEDS: Senokot S 8.6-50 MG TAB PO SCH ×2 (09:50→21:13)
[2020-11-04] MEDS: Lubiprostone 24 MCG CAP PO SCH (09:50)
[2020-11-04] MEDS: Losartan Potassium 50 MG TAB PO SCH (09:50)
[2020-11-04] MEDS: Fish Oil 1,000 MG CAP PO SCH (09:51)
[2020-11-04] MEDS: Multivitamin W/ Minerals 1 TAB PO SCH (09:51)
[2020-11-04] MEDS: Cholecalciferol 1,000 UNITS (25 MCG) TAB PO SCH (09:51)
[2020-11-04] MEDS: Timolol 0.5% Ophth Soln 5 ml Bottle EA EYE SCH ×2 (09:51→21:12)
[2020-11-04] MEDS: DIFLUPREDNATE EYE EA EYE SCH (09:51)
[2020-11-04] MEDS: Glimepiride 2 MG TAB PO SCH (21:13)
[2020-11-04] MEDS: Nitrofurantoin Macrocrystal 50 MG CAP PO SCH (21:13)
[2020-11-04] MEDS: Loratadine 10 MG TAB PO SCH (21:13)
[2020-11-04 23:18] LABS: SARS-CoV-2 PCR by NAA Not Detected (NotDetected)
[2020-11-05] MEDS: Timolol 0.5% Ophth Soln 5 ml Bottle EA EYE SCH ×2 (08:56→21:24)
[2020-11-05] MEDS: Cholecalciferol 1,000 UNITS (25 MCG) TAB PO SCH (08:57)
[2020-11-05] MEDS: Multivitamin W/ Minerals 1 TAB PO SCH (08:57)
[2020-11-05] MEDS: Fish Oil 1,000 MG CAP PO SCH (08:57)
[2020-11-05] MEDS: Famotidine 20 MG TAB PO SCH ×2 (08:57→21:25)
[2020-11-05] MEDS: Aspirin 81 mg Enteric Coated Tablet PO SCH ×2 (08:57→21:25)
[2020-11-05] MEDS: Senokot S 8.6-50 MG TAB PO SCH ×2 (08:57→21:25)
[2020-11-05] MEDS: DIFLUPREDNATE EYE EA EYE SCH (08:58)
[2020-11-05] MEDS: Lubiprostone 24 MCG CAP PO SCH (08:58)
[2020-11-05] MEDS: Losartan Potassium 50 MG TAB PO SCH (08:58)
[2020-11-05] MEDS: Glimepiride 2 MG TAB PO SCH (21:25)
[2020-11-05] MEDS: Loratadine 10 MG TAB PO SCH (21:25)
[2020-11-05] MEDS: Nitrofurantoin Macrocrystal 50 MG CAP PO SCH (21:25)
[2020-11-05] MEDS: Triamcinolone 0.1% Cream 15 GM TUBE TOP SCH (21:26)
[2020-11-06] MEDS: Timolol 0.5% Ophth Soln 5 ml Bottle EA EYE SCH ×2 (07:52→20:45)
[2020-11-06] MEDS: Multivitamin W/ Minerals 1 TAB PO SCH (07:53)
[2020-11-06] MEDS: Fish Oil 1,000 MG CAP PO SCH (07:53)
[2020-11-06] MEDS: Losartan Potassium 50 MG TAB PO SCH (07:54)
[2020-11-06] MEDS: Aspirin 81 mg Enteric Coated Tablet PO SCH ×2 (07:54→20:46)
[2020-11-06] MEDS: Lubiprostone 24 MCG CAP PO SCH (07:55)
[2020-11-06] MEDS: DIFLUPREDNATE EYE EA EYE SCH (07:55)
[2020-11-06] MEDS: Senokot S 8.6-50 MG TAB PO SCH ×2 (07:55→20:47)
[2020-11-06] MEDS: Famotidine 20 MG TAB PO SCH (07:55)
[2020-11-06] MEDS: Cholecalciferol 1,000 UNITS (25 MCG) TAB PO SCH (07:55)
[2020-11-06] MEDS: Triamcinolone 0.1% Cream 15 GM TUBE TOP SCH ×2 (07:56→20:45)
[2020-11-06 12:09] LABS: Hemoglobin 13.1 g/dL (12.0-16.0); Mean Corpuscular HGB CONC 32.2 g/dL (32.0-36.0); Mean Corpuscular Hemoglobin 29.1 pg (27.0-31.0); Mean Corpuscular Volume 90.3 fL (78.0-98.0); Mean Platelet Volume 7.1 fL (7.4-10.4); Platelet Count 453 thou/uL (130-400); RBC Distribution Width 12.2 % (11.5-14.5); Red Blood Cell (RBC) Count 4.49 mill/uL (4.20-5.40); White Blood Cell (WBC) Count 10.7 thou/uL (4.8-10.8)
[2020-11-06 12:10] LABS: #Lymphocytes 2.2 thou/uL (1.20-3.40); #Neutrophils 7.5 thou/uL (1.40-6.50); %Basophils 0.8 % (0.0-1.0); %Eosinophils 2.7 % (0.0-10.0); %Lymphocytes 20.9 % (21.0-51.0); %Monocytes 5.9 % (0.0-10.0); %Neutrophils 69.7 % (42.0-75.0)
[2020-11-06 12:11] LABS: #Basophils 0.1 thou/uL (0.0-0.2); #Eosinphils 0.3 thou/uL (0.0-0.7); #Monocytes 0.6 thou/uL (0.11-0.59)
[2020-11-06 12:30] LABS: ALT (SGPT) 15 U/L (8-55); AST (SGOT) 13 U/L (5-34); Albumin 3.8 g/dL (3.4-4.8); Alkaline Phosphatase 50 U/L (40-110); Anion Gap 16 mmol/L (10-20); BUN (Urea Nitrogen) 20 mg/dL (9.8-20.1); Bilirubin, Total 0.3 mg/dL (0.2-1.2); Calc. Creatinine Clearance 53 mL/min (70-130); Calcium 9.8 mg/dL (7.8-10.44); Carbon Dioxide 24 mmol/L (23-31); Chloride 100 mmol/L (98-107); Globulin 3.6 g/dL (2.4-3.5); Potassium 4.8 mmol/L (3.5-5.1); Protein, Total 7.4 g/dL (5.8-8.1); Sodium 135 mmol/L (136-145)
[2020-11-06 12:38] LABS: Glucose 158 mg/dL (83-110)
[2020-11-06 13:08] LABS: CKMB 0.7 ng/mL (0-6.6); Troponin I Less than 0.010 ng/mL (< 0.028)
[2020-11-06] MEDS: Nitrofurantoin Macrocrystal 50 MG CAP PO SCH (20:46)
[2020-11-06] MEDS: Loratadine 10 MG TAB PO SCH (20:46)
[2020-11-06] MEDS: Glimepiride 2 MG TAB PO SCH (20:46)
[2020-11-06] MEDS: CLOBETASOL 0.05% TOP SCH (20:56)
[2020-11-07] MEDS: Triamcinolone 0.1% Cream 15 GM TUBE TOP SCH ×2 (08:42→20:56)
[2020-11-07] MEDS: Cholecalciferol 1,000 UNITS (25 MCG) TAB PO SCH (08:43)
[2020-11-07] MEDS: Multivitamin W/ Minerals 1 TAB PO SCH (08:43)
[2020-11-07] MEDS: Aspirin 81 mg Enteric Coated Tablet PO SCH ×2 (08:43→20:57)
[2020-11-07] MEDS: Famotidine 20 MG TAB PO SCH (08:43)
[2020-11-07] MEDS: Lubiprostone 24 MCG CAP PO SCH (08:43)
[2020-11-07] MEDS: Fish Oil 1,000 MG CAP PO SCH (08:43)
[2020-11-07] MEDS: Losartan Potassium 50 MG TAB PO SCH (08:44)
[2020-11-07] MEDS: Senokot S 8.6-50 MG TAB PO SCH ×2 (08:44→20:57)
[2020-11-07] MEDS: DIFLUPREDNATE EYE EA EYE SCH (08:45)
[2020-11-07] MEDS: Timolol 0.5% Ophth Soln 5 ml Bottle EA EYE SCH ×2 (08:46→20:56)
[2020-11-07] MEDS: Glimepiride 2 MG TAB PO SCH (20:57)
[2020-11-07] MEDS: Nitrofurantoin Macrocrystal 50 MG CAP PO SCH (20:57)
[2020-11-07] MEDS: Loratadine 10 MG TAB PO SCH (20:57)
[2020-11-08] MEDS: Famotidine 20 MG TAB PO SCH (08:33)
[2020-11-08] MEDS: Aspirin 81 mg Enteric Coated Tablet PO SCH ×2 (08:33→20:36)
[2020-11-08] MEDS: Lubiprostone 24 MCG CAP PO SCH (08:33)
[2020-11-08] MEDS: Multivitamin W/ Minerals 1 TAB PO SCH (08:34)
[2020-11-08] MEDS: Fish Oil 1,000 MG CAP PO SCH (08:34)
[2020-11-08] MEDS: Losartan Potassium 50 MG TAB PO SCH (08:34)
[2020-11-08] MEDS: Cholecalciferol 1,000 UNITS (25 MCG) TAB PO SCH (08:34)
[2020-11-08] MEDS: Senokot S 8.6-50 MG TAB PO SCH ×2 (08:35→20:38)
[2020-11-08] MEDS: Timolol 0.5% Ophth Soln 5 ml Bottle EA EYE SCH ×2 (08:38→20:36)
[2020-11-08] MEDS: Triamcinolone 0.1% Cream 15 GM TUBE TOP SCH ×2 (08:39→20:35)
[2020-11-08] MEDS: DIFLUPREDNATE EYE EA EYE SCH (08:39)
[2020-11-08] MEDS: Glimepiride 2 MG TAB PO SCH (20:36)
[2020-11-08] MEDS: Nitrofurantoin Macrocrystal 50 MG CAP PO SCH (20:36)
[2020-11-08] MEDS: Loratadine 10 MG TAB PO SCH (20:36)
[2020-11-08] MEDS: CLOBETASOL 0.05% TOP SCH (20:37)
[2020-11-09] MEDS: Multivitamin W/ Minerals 1 TAB PO SCH (08:13)
[2020-11-09] MEDS: Aspirin 81 mg Enteric Coated Tablet PO SCH ×2 (08:13→21:00)
[2020-11-09] MEDS: Senokot S 8.6-50 MG TAB PO SCH ×2 (08:13→21:00)
[2020-11-09] MEDS: Famotidine 20 MG TAB PO SCH (08:13)
[2020-11-09] MEDS: Fish Oil 1,000 MG CAP PO SCH (08:13)
[2020-11-09] MEDS: Lubiprostone 24 MCG CAP PO SCH (08:13)
[2020-11-09] MEDS: Cholecalciferol 1,000 UNITS (25 MCG) TAB PO SCH (08:13)
[2020-11-09] MEDS: Losartan Potassium 50 MG TAB PO SCH (08:14)
[2020-11-09] MEDS: Timolol 0.5% Ophth Soln 5 ml Bottle EA EYE SCH ×2 (08:14→21:00)
[2020-11-09] MEDS: Triamcinolone 0.1% Cream 15 GM TUBE TOP SCH ×2 (08:14→21:02)
[2020-11-09] MEDS: DIFLUPREDNATE EYE EA EYE SCH (08:22)
[2020-11-09] MEDS: Loratadine 10 MG TAB PO SCH (21:00)
[2020-11-09] MEDS: Glimepiride 2 MG TAB PO SCH (21:00)
[2020-11-09] MEDS: Nitrofurantoin Macrocrystal 50 MG CAP PO SCH (21:00)
[2020-11-10] MEDS: Timolol 0.5% Ophth Soln 5 ml Bottle EA EYE SCH ×2 (08:25→21:48)
[2020-11-10] MEDS: Fish Oil 1,000 MG CAP PO SCH (08:26)
[2020-11-10] MEDS: Triamcinolone 0.1% Cream 15 GM TUBE TOP SCH ×2 (08:26→21:48)
[2020-11-10] MEDS: Famotidine 20 MG TAB PO SCH (08:26)
[2020-11-10] MEDS: Multivitamin W/ Minerals 1 TAB PO SCH (08:26)
[2020-11-10] MEDS: DIFLUPREDNATE EYE EA EYE SCH (08:26)
[2020-11-10] MEDS: Lubiprostone 24 MCG CAP PO SCH (08:28)
[2020-11-10] MEDS: Cholecalciferol 1,000 UNITS (25 MCG) TAB PO SCH (08:28)
[2020-11-10] MEDS: Senokot S 8.6-50 MG TAB PO SCH ×2 (08:28→21:46)
[2020-11-10] MEDS: Aspirin 81 mg Enteric Coated Tablet PO SCH ×2 (08:28→21:46)
[2020-11-10] MEDS: Losartan Potassium 50 MG TAB PO SCH (08:31)
[2020-11-10 09:13] LABS: #Basophils 0.1 thou/uL (0.0-0.2); #Eosinphils 0.3 thou/uL (0.0-0.7); #Lymphocytes 2.1 thou/uL (1.20-3.40); #Monocytes 0.6 thou/uL (0.11-0.59); #Neutrophils 7.5 thou/uL (1.40-6.50); %Basophils 1.1 % (0.0-1.0); %Eosinophils 2.4 % (0.0-10.0); %Lymphocytes 20.1 % (21.0-51.0); %Monocytes 5.3 % (0.0-10.0); %Neutrophils 71.1 % (42.0-75.0); Hemoglobin 12.2 g/dL (12.0-16.0); Mean Corpuscular HGB CONC 31.4 g/dL (32.0-36.0); Mean Corpuscular Hemoglobin 28.6 pg (27.0-31.0); Mean Corpuscular Volume 90.9 fL (78.0-98.0); Platelet Count 417 thou/uL (130-400); RBC Distribution Width 12.2 % (11.5-14.5); Red Blood Cell (RBC) Count 4.28 mill/uL (4.20-5.40); White Blood Cell (WBC) Count 10.6 thou/uL (4.8-10.8)
[2020-11-10 09:18] LABS: Anion Gap 14 mmol/L (10-20); BUN (Urea Nitrogen) 21 mg/dL (9.8-20.1); Calc. Creatinine Clearance 62 mL/min (70-130); Carbon Dioxide 24 mmol/L (23-31); Chloride 102 mmol/L (98-107); Glucose 172 mg/dL (83-110); Potassium 4.3 mmol/L (3.5-5.1); Sodium 136 mmol/L (136-145)
[2020-11-10] MEDS: Glimepiride 2 MG TAB PO SCH (21:45)
[2020-11-10] MEDS: Nitrofurantoin Macrocrystal 50 MG CAP PO SCH (21:45)
[2020-11-10] MEDS: Loratadine 10 MG TAB PO SCH (21:46)
[2020-11-10] MEDS: CLOBETASOL 0.05% TOP SCH (21:47)
[2020-11-11] MEDS: Timolol 0.5% Ophth Soln 5 ml Bottle EA EYE SCH ×2 (07:50→21:06)
[2020-11-11] MEDS: Triamcinolone 0.1% Cream 15 GM TUBE TOP SCH ×2 (07:51→21:06)
[2020-11-11] MEDS: Cholecalciferol 1,000 UNITS (25 MCG) TAB PO SCH (07:51)
[2020-11-11] MEDS: DIFLUPREDNATE EYE EA EYE SCH (07:51)
[2020-11-11] MEDS: Aspirin 81 mg Enteric Coated Tablet PO SCH ×2 (07:52→21:08)
[2020-11-11] MEDS: Multivitamin W/ Minerals 1 TAB PO SCH (07:52)
[2020-11-11] MEDS: Senokot S 8.6-50 MG TAB PO SCH ×2 (07:52→21:06)
[2020-11-11] MEDS: Famotidine 20 MG TAB PO SCH (07:52)
[2020-11-11] MEDS: Losartan Potassium 50 MG TAB PO SCH (07:52)
[2020-11-11] MEDS: Fish Oil 1,000 MG CAP PO SCH (07:53)
[2020-11-11] MEDS: Lubiprostone 24 MCG CAP PO SCH (07:53)
[2020-11-11] MEDS: Glimepiride 2 MG TAB PO SCH (21:04)
[2020-11-11] MEDS: Nitrofurantoin Macrocrystal 50 MG CAP PO SCH (21:05)
[2020-11-11] MEDS: Loratadine 10 MG TAB PO SCH (21:07)
[2020-11-12 04:10] VITALS: BMI 38.1
[2020-11-12] MEDS: Triamcinolone 0.1% Cream 15 GM TUBE TOP SCH ×2 (08:38→20:28)
[2020-11-12] MEDS: Multivitamin W/ Minerals 1 TAB PO SCH (08:39)
[2020-11-12] MEDS: DIFLUPREDNATE EYE EA EYE SCH (08:39)
[2020-11-12] MEDS: Timolol 0.5% Ophth Soln 5 ml Bottle EA EYE SCH ×2 (08:39→20:28)
[2020-11-12] MEDS: Fish Oil 1,000 MG CAP PO SCH (08:40)
[2020-11-12] MEDS: Senokot S 8.6-50 MG TAB PO SCH ×2 (08:40→20:28)
[2020-11-12] MEDS: Aspirin 81 mg Enteric Coated Tablet PO SCH ×2 (08:40→20:28)
[2020-11-12] MEDS: Cholecalciferol 1,000 UNITS (25 MCG) TAB PO SCH (08:40)
[2020-11-12] MEDS: Famotidine 20 MG TAB PO SCH (08:40)
[2020-11-12] MEDS: Losartan Potassium 50 MG TAB PO SCH (08:40)
[2020-11-12] MEDS: Lubiprostone 24 MCG CAP PO SCH (08:41)
[2020-11-12] MEDS: Nitrofurantoin Macrocrystal 50 MG CAP PO SCH (20:28)
[2020-11-12] MEDS: Glimepiride 2 MG TAB PO SCH (20:28)
[2020-11-12] MEDS: Loratadine 10 MG TAB PO SCH (20:33)
[2020-11-12 23:29] LABS: SARS-CoV-2 PCR by NAA Not Detected (NotDetected)
[2020-11-13] MEDS: Famotidine 20 MG TAB PO SCH (08:12)
[2020-11-13] MEDS: Aspirin 81 mg Enteric Coated Tablet PO SCH ×2 (08:13→21:34)
[2020-11-13] MEDS: Senokot S 8.6-50 MG TAB PO SCH ×2 (08:13→21:34)
[2020-11-13] MEDS: Cholecalciferol 1,000 UNITS (25 MCG) TAB PO SCH (08:13)
[2020-11-13] MEDS: Multivitamin W/ Minerals 1 TAB PO SCH (08:14)
[2020-11-13] MEDS: Lubiprostone 24 MCG CAP PO SCH (08:14)
[2020-11-13] MEDS: Losartan Potassium 50 MG TAB PO SCH (08:14)
[2020-11-13] MEDS: Fish Oil 1,000 MG CAP PO SCH (08:14)
[2020-11-13] MEDS: Timolol 0.5% Ophth Soln 5 ml Bottle EA EYE SCH ×2 (08:15→21:35)
[2020-11-13] MEDS: DIFLUPREDNATE EYE EA EYE SCH (08:18)
[2020-11-13] MEDS: Glimepiride 2 MG TAB PO SCH (21:34)
[2020-11-13] MEDS: CLOBETASOL 0.05% TOP SCH (21:35)
[2020-11-13] MEDS: Loratadine 10 MG TAB PO SCH (21:39)
[2020-11-14 07:07] VITALS: TEMP 97.6
[2020-11-14] MEDS: Aspirin 81 mg Enteric Coated Tablet PO SCH (09:53)
[2020-11-14] MEDS: Losartan Potassium 50 MG TAB PO SCH (09:53)
[2020-11-14] MEDS: Cholecalciferol 1,000 UNITS (25 MCG) TAB PO SCH (09:53)
[2020-11-14] MEDS: Fish Oil 1,000 MG CAP PO SCH (09:53)
[2020-11-14] MEDS: Senokot S 8.6-50 MG TAB PO SCH (09:53)
[2020-11-14] MEDS: Multivitamin W/ Minerals 1 TAB PO SCH (09:53)
[2020-11-14] MEDS: Famotidine 20 MG TAB PO SCH (09:54)
[2020-11-14] MEDS: Lubiprostone 24 MCG CAP PO SCH (09:54)
[2020-11-14] MEDS: Timolol 0.5% Ophth Soln 5 ml Bottle EA EYE SCH (09:55)
[2020-11-14] MEDS: DIFLUPREDNATE EYE EA EYE SCH (09:55)
[2020-11-14 11:23] VITALS: BP 139/71
== END 2020-11-14 10:42 | disposition home or self-care (01) | DRG 864 ==
LOC: NAV ACUTE 18:01
PROVIDERS: ADMIT Internal Medicine; ATTEND Internal Medicine
DX: R50.9 Fever, unspecified (principal); R53.81 Other malaise; D72.829 Elevated white blood cell count, unspecified; E11.9 Type 2 diabetes mellitus without complications; I10 Essential (primary) hypertension; J45.909 Unspecified asthma, uncomplicated; E66.01 Morbid (severe) obesity due to excess calories; H40.9 Unspecified glaucoma; G47.33 Obstructive sleep apnea (adult) (pediatric); K59.09 Other constipation; F32.9 Major depressive disorder, single episode, unspecified; L71.9 Rosacea, unspecified; L21.9 Seborrheic dermatitis, unspecified; F41.9 Anxiety disorder, unspecified; Z20.822 Contact with and (suspected) exposure to COVID-19; R55 Syncope and collapse; Z87.440 Personal history of urinary (tract) infections; Z90.49 Acquired absence of other specified parts of digestive tract; Z98.890 Other specified postprocedural states; Z88.0 Allergy status to penicillin; Z88.1 Allergy status to other antibiotic agents; Z91.010 Allergy to peanuts; Z79.82 Long term (current) use of aspirin; Z79.899 Other long term (current) drug therapy; Z68.31 Body mass index [BMI] 31.0-31.9, adult
CPT/HCPCS: 36416; 71045; 80048; 80053; 81003; 82553; 83880; 84484; 85025; 87040; 87086; 94640; 36415-59; J1815; J7611; U0003; U0005

== ENCOUNTER 2020-11-06 12:03 | Emergency (ER) | payer MEDICARE, OTHER ==
[2020-11-06 12:45] LABS: Bilirubin Negative (Negative); Blood, Urine Negative (Negative); Clarity Clear (Clear); Glucose, Urine (Dipstick) Negative (Negative); Ketone, Urine Negative (Negative); Leukocyte Negative (Negative); Nitrite Negative (Negative); Protein, Urine (Dipstick) 100 mg/dL (Neg-Trace); Urobilinogen 0.2 mg/dL (Less than 2)
[2020-11-06 12:51] LABS: RBC/HPF None Seen HPF (0-3); WBC/HPF 0-3 HPF (0-3)
[2020-11-06 12:52] LABS: Bacteria/HPF None Seen HPF (None Seen)
== END 2020-11-06 14:10 | disposition critical access hospital (66) ==
LOC: NAV ERS 12:03
DX: R55 Syncope and collapse (principal); Z79.899 Other long term (current) drug therapy; Z79.82 Long term (current) use of aspirin; Z79.4 Long term (current) use of insulin; E11.9 Type 2 diabetes mellitus without complications; J45.909 Unspecified asthma, uncomplicated; I10 Essential (primary) hypertension; Z87.891 Personal history of nicotine dependence
CPT/HCPCS: 51701; 70450; 71045; 81003; 81015; 93005; 94760

== ENCOUNTER 2023-12-10 07:53 | Inpatient (IN) | payer MEDICARE, OTHER ==
[2023-12-10] MEDS ORDERED: Glucagon 1 MG/ML KIT IM PRN (15:43)
[2023-12-10] MEDS ORDERED: Dextrose 50% Abboject 50 ML SYRINGE SLOW IVP PRN (15:43)
[2023-12-10] MEDS ORDERED: Non-Formulary Item 1 EACH (Aluminum & Magnesium Hydroxide [Maalox] 30 ML Udcup) SSW PRN (17:04)
[2023-12-10] MEDS: Insulin Lispro 100 UNIT/ML 10 ML VIAL SC PRN (17:25)
[2023-12-10] MEDS: NIFEdipine XL 30 MG ER.TAB PO SCH (22:10)
[2023-12-10] MEDS: QUEtiapine 25 MG TAB PO SCH (22:10)
[2023-12-10] MEDS: Timolol 0.5% Ophth Soln 5 ml Bottle EA EYE SCH (22:11)
[2023-12-10] MEDS: Prednisolone Acet 1% Eye Drop EA EYE SCH (22:13)
[2023-12-10] MEDS: Ondansetron ODT 4 MG TAB SL PRN (22:43)
[2023-12-11] MEDS: LevoFLOXacin 750 MG TAB PO SCH (05:25)
[2023-12-11] MEDS ORDERED: LevoFLOXacin 500 MG TAB PO SCH (06:00)
[2023-12-11 06:02] LABS: #Basophils 0.1 thou/uL (0.0-0.2); #Eosinophils 0.1 thou/uL (0.0-0.7); #Lymphocytes 2.5 thou/uL (1.20-3.40); #Neutrophils 6.7 thou/uL (1.40-6.50); %Eosinophils 1.3 % (0.0-10.0); %Lymphocytes 23.8 % (21.0-51.0); %Monocytes 9.1 % (0.0-10.0); %Neutrophils 64.8 % (42.0-75.0); Hematocrit 36.4 % (36.0-47.0); Hemoglobin 12.3 g/dL (12.0-16.0); Mean Corpuscular HGB CONC 33.8 g/dL (32.0-36.0); Mean Corpuscular Hemoglobin 29.9 pg (27.0-31.0); Mean Corpuscular Volume 88.6 fl (78.0-98.0); Platelet Count 341 10x3/uL (130-400); RBC Distribution Width 11.7 % (11.5-14.5); Red Blood Cell (RBC) Count 4.11 mill/uL (4.20-5.40); White Blood Cell (WBC) Count 10.4 10x3/uL (4.8-10.8)
[2023-12-11 06:16] LABS: ALT (SGPT) 34 U/L (8-55); AST (SGOT) 31 U/L (5-34); Albumin 2.8 g/dL (3.4-4.8); Alkaline Phosphatase 62 U/L (40-110); Anion Gap 14 mmol/L (10-20); BUN (Urea Nitrogen) 19 mg/dL (9.8-20.1); Bilirubin, Total 0.3 mg/dL (0.2-1.2); Calc. Creatinine Clearance 54 mL/min (70-130); Carbon Dioxide 24 mmol/L (23-31); Chloride 99 mmol/L (98-107); Estimated GFR 42; Globulin 3.5 g/dL (2.4-3.5); Glucose 194 mg/dL (83-110); Potassium 3.8 mmol/L (3.5-5.1); Protein, Total 6.3 g/dL (5.8-8.1); Sodium 133 mmol/L (136-145)
[2023-12-11] MEDS: Loratadine 10 MG TAB PO SCH (08:25)
[2023-12-11] MEDS: Nystatin 500,000 UNITS/5 ML UDCUP SSW SCH (08:25)
[2023-12-11] MEDS: metFORMIN 500 MG TAB PO SCH (08:25)
[2023-12-11] MEDS: Brimonidine Tartrate 0.2% Ophth Soln 5 ml Bottle R EYE SCH (08:26)
[2023-12-11] MEDS: Polyethylene Glycol 3350 17 GM Packet PO SCH (08:31)
[2023-12-11] MEDS: Lubiprostone 24 MCG CAP PO SCH (08:32)
[2023-12-11] MEDS ORDERED: DIFLUPREDNATE EA EYE SCH (09:00)
[2023-12-11] MEDS: Insulin Lispro 100 UNIT/ML 10 ML VIAL SC PRN (20:51)
[2023-12-11] MEDS: DorzolamidE/Timolol 2%/0.5% Ophth Soln 10 ml Bottle EA EYE SCH (20:51)
[2023-12-12] MEDS: Glimepiride 2 MG TAB PO SCH (07:48)
[2023-12-12] MEDS: Albuterol 200 PUFF (6.7GM INHALER) INH PRN (07:57)
[2023-12-12] MEDS ORDERED: Polyethylene Glycol 3350 17 GM Packet PO PRN (11:17)
[2023-12-13] MEDS: Acetaminophen 325 MG TAB PO PRN (02:22)
[2023-12-13] MEDS: Saxagliptin 2.5 MG TAB PO SCH (08:40)
[2023-12-13] MEDS ORDERED: Calcium Carbonate 500 MG ChewTAB PO PRN (08:48)
[2023-12-13] MEDS ORDERED: Alogliptin 6.25 MG TAB PO SCH (09:00)
[2023-12-14 07:06] VITALS: BMI 40.1
[2023-12-14] MEDS: Acetaminophen 325 MG TAB PO PRN (20:52)
[2023-12-15 06:03] LABS: #Basophils 0.1 thou/uL (0.0-0.2); #Eosinophils 0.2 thou/uL (0.0-0.7); #Lymphocytes 2.3 thou/uL (1.20-3.40); #Monocytes 0.8 thou/uL (0.11-0.59); %Basophils 0.8 % (0.0-1.0); %Eosinophils 2.1 % (0.0-10.0); %Lymphocytes 24.8 % (21.0-51.0); %Monocytes 8.2 % (0.0-10.0); %Neutrophils 64.2 % (42.0-75.0); Hematocrit 36.4 % (36.0-47.0); Hemoglobin 11.7 g/dL (12.0-16.0); Mean Corpuscular Volume 90.6 fl (78.0-98.0); Mean Platelet Volume 6.2 fL (7.4-10.4); Platelet Count 394 10x3/uL (130-400); Red Blood Cell (RBC) Count 4.02 mill/uL (4.20-5.40); White Blood Cell (WBC) Count 9.3 10x3/uL (4.8-10.8)
[2023-12-15 06:13] LABS: ALT (SGPT) 17 U/L (8-55); AST (SGOT) 15 U/L (5-34); Albumin 2.9 g/dL (3.4-4.8); Alkaline Phosphatase 56 U/L (40-110); Anion Gap 12 mmol/L (10-20); BUN (Urea Nitrogen) 21 mg/dL (9.8-20.1); Bilirubin, Total 0.3 mg/dL (0.2-1.2); Calc. Creatinine Clearance 52 mL/min (70-130); Calcium 8.7 mg/dL (7.8-10.44); Carbon Dioxide 26 mmol/L (23-31); Chloride 103 mmol/L (98-107); Estimated GFR 41; Globulin 3.3 g/dL (2.4-3.5); Glucose 147 mg/dL (83-110); Potassium 3.7 mmol/L (3.5-5.1); Protein, Total 6.2 g/dL (5.8-8.1); Sodium 137 mmol/L (136-145)
[2023-12-15] MEDS: Simethicone Chewable 80 MG TAB PO PRN (07:48)
[2023-12-16 10:50] VITALS: BMI 40.1
[2023-12-16] MEDS: Melatonin 3 MG TAB PO SCH (20:02)
[2023-12-17] MEDS: DESONIDE TOP SCH (08:58)
[2023-12-18 05:55] LABS: #Basophils 0.1 thou/uL (0.0-0.2); #Eosinophils 0.2 thou/uL (0.0-0.7); #Lymphocytes 2.1 thou/uL (1.20-3.40); #Monocytes 0.7 thou/uL (0.11-0.59); #Neutrophils 7.2 thou/uL (1.40-6.50); %Basophils 0.8 % (0.0-1.0); %Eosinophils 1.6 % (0.0-10.0); %Lymphocytes 20.8 % (21.0-51.0); %Monocytes 6.4 % (0.0-10.0); %Neutrophils 70.3 % (42.0-75.0); Hemoglobin 11.6 g/dL (12.0-16.0); Mean Corpuscular HGB CONC 32.3 g/dL (32.0-36.0); Mean Corpuscular Hemoglobin 29.3 pg (27.0-31.0); Mean Corpuscular Volume 90.6 fl (78.0-98.0); Mean Platelet Volume 5.9 fL (7.4-10.4); Platelet Count 399 10x3/uL (130-400); RBC Distribution Width 12.1 % (11.5-14.5); Red Blood Cell (RBC) Count 3.98 mill/uL (4.20-5.40); White Blood Cell (WBC) Count 10.3 10x3/uL (4.8-10.8)
[2023-12-18 06:10] LABS: Anion Gap 12 mmol/L (10-20); BUN (Urea Nitrogen) 19 mg/dL (9.8-20.1); Calc. Creatinine Clearance 53 mL/min (70-130); Calcium 8.5 mg/dL (7.8-10.44); Carbon Dioxide 25 mmol/L (23-31); Chloride 104 mmol/L (98-107); Estimated GFR 42; Glucose 140 mg/dL (83-110); Potassium 3.6 mmol/L (3.5-5.1); Sodium 137 mmol/L (136-145)
[2023-12-19 07:29] VITALS: BP 139/75; TEMP 98
== END 2023-12-19 12:30 | disposition home health service (06) | DRG 945 ==
LOC: NAV ACUTE 16:11
PROVIDERS: ADMIT Student in an Organized Health Care Education/Training Program; ATTEND Student in an Organized Health Care Education/Training Program
PROC: F07Z9ZZ Gait Training/Functional Ambulation Treatment (ICD-10-PCS; principal; 2023-12-10)
DX: R53.81 Other malaise (principal); A41.59 Other Gram-negative sepsis; N13.6 Pyonephrosis; Z68.41 Body mass index [BMI] 40.0-44.9, adult; R78.81 Bacteremia; Z66 Do not resuscitate; I10 Essential (primary) hypertension; E11.9 Type 2 diabetes mellitus without complications; E66.9 Obesity, unspecified; B96.4 Proteus (mirabilis) (morganii) as the cause of diseases classified elsewhere; G47.33 Obstructive sleep apnea (adult) (pediatric); F32.A Depression, unspecified; J45.909 Unspecified asthma, uncomplicated; H40.9 Unspecified glaucoma; G31.84 Mild cognitive impairment of uncertain or unknown etiology; Z90.49 Acquired absence of other specified parts of digestive tract; Z98.890 Other specified postprocedural states; Z98.891 History of uterine scar from previous surgery; Z96.0 Presence of urogenital implants; K21.9 Gastro-esophageal reflux disease without esophagitis; M54.50 Low back pain, unspecified; Z79.84 Long term (current) use of oral hypoglycemic drugs
CPT/HCPCS: 36415; 36416; 80048; 80053; 85025; 87040; 87086; J1815; Q0162